=== PATIENT | male | born 1975 | race Caucasian/White ===

== ENCOUNTER → 2017-02-28 | Outpatient (CLI) | payer MEDICARE ==
[~2017-02-28] MED LIST: /METO5TA PO; /ONDA4TA PO; /PANT40TA PO; ABIL2TAB2 PO; ALBU17IN INH; ALPR1TAB3 PO; AMAR1TAB PO; AMBI12.52 PO; AMBIEN PO; AXIR30SO TD; BUPR300T34 PO; CRES5TAB PO; DRIS50002 PO; ENTO3CAP5 PO; FERR325T3 PO; L-ME15TA5 PO; LEVO50TA4 PO; METO25TAB PO; PERC7.5T3 PO; PREV30CA6 PO; SOMA250T PO; SYNT50TA PO; TIZA2CAP3 PO; VERA27.5; VOLT1GEL2 TD; XANA0.25 PO; ZOLO100T PO; ZOLO50TA PO; combination cream TOP
[2017-02-28 20:54] LABS: MEAN CORPUSCULAR VOLUME 79.4 fl (80.0-96.0)
[2017-02-28 20:55] LABS: MEAN CORPUSCULAR HEMOGLOBIN 27.9 pg (27.0-33.0); MEAN CORPUSCULAR HGB CONC 35.1 g/dl (32.0-36.5); RED CELL DISTRIBUTION WIDTH 13.6 % (11.5-14.5)
== END ==
LOC: M SMT 08:14
PROVIDERS: ATTEND Internal Medicine Endocrinology, Diabetes & Metabolism
DX: E29.1 Testicular hypofunction (principal)

== ENCOUNTER → 2017-02-28 | Outpatient (CLI) | payer MEDICARE ==
[2017-02-28 13:37] LABS: MEAN CORPUSCULAR HEMOGLOBIN 27.9 pg (27.0-33.0); MEAN CORPUSCULAR HGB CONC 35.1 g/dl (32.0-36.5); MEAN CORPUSCULAR VOLUME 79.4 fl (80.0-96.0); RED CELL DISTRIBUTION WIDTH 13.6 % (11.5-14.5)
[2017-02-28 13:56] LABS: THYROID PEROXIDASE ANTIBODY 32.5 U/ML (<60.0)
== END ==
LOC: M SMT 08:10
PROVIDERS: ATTEND Family Medicine
DX: R53.83 Other fatigue (principal); M79.622 Pain in left upper arm; D86.9 Sarcoidosis, unspecified; K90.0 Celiac disease; E55.9 Vitamin D deficiency, unspecified; E29.1 Testicular hypofunction; Z79.899 Other long term (current) drug therapy
CPT/HCPCS: 36415; 82306; 82607; 83036; 84403; 85027; 85652; 86140; 86376; G0103

== ENCOUNTER → 2017-04-03 | Outpatient (CLI) | payer MEDICARE ==
[2017-04-03 12:04] LABS: INR 1.03
== END ==
LOC: M SMT 08:48
PROVIDERS: ATTEND Physical Medicine & Rehabilitation
DX: Z01.812 Encounter for preprocedural laboratory examination (principal); D69.1 Qualitative platelet defects

== ENCOUNTER → 2017-04-12 | Outpatient (CLI) | payer MEDICARE ==
[2017-04-12 14:00] LABS: MEAN CORPUSCULAR HEMOGLOBIN 27.5 pg (27.0-33.0); MEAN CORPUSCULAR HGB CONC 34.5 g/dl (32.0-36.5); MEAN CORPUSCULAR VOLUME 79.9 fl (80.0-96.0); RED CELL DISTRIBUTION WIDTH 13.6 % (11.5-14.5); WHITE BLOOD COUNT 5.7 K/mm3 (4.0-10.0)
[2017-04-12 14:17] LABS: VITAMIN B12 LEVEL 573 PG/ML (247-911)
[2017-04-12 14:27] LABS: ALBUMIN 4.5 GM/DL (3.2-5.2); ALBUMIN/GLOBULIN RATIO 1.32 (1.00-1.93); ALKALINE PHOSPHATASE 89 U/L (45-117); ALT/SGPT 88 U/L (12-78); ANION GAP 8 MEQ/L (8-16); AST/SGOT 55 U/L (15-37); BILIRUBIN,TOTAL 0.5 MG/DL (0.2-1.0); BLOOD UREA NITROGEN 11 MG/DL (7-18); CALCIUM LEVEL 9.5 MG/DL (8.5-10.1); CARBON DIOXIDE LEVEL 30 MEQ/L (21-32); CHLORIDE LEVEL 99 MEQ/L (98-107); CREATININE FOR GFR 1.04 MG/DL (0.70-1.30); FERRITIN 341 NG/ML (26-388); GLOMERULAR FILTRATION RATE > 60.0 (>60); GLUCOSE, FASTING 267 MG/DL (70-105); MAGNESIUM LEVEL 2.1 MG/DL (1.8-2.4); PERCENT SATURATION 14.4 % (19.7-37.4); POTASSIUM SERUM 4.1 MEQ/L (3.5-5.1); SODIUM LEVEL 137 MEQ/L (136-145); TOTAL IRON BINDING CAPACITY 479 UG/DL (250-450); TOTAL PROTEIN 7.9 GM/DL (6.4-8.2)
[2017-04-16 10:09] LABS: VITAMIN K1 0.75 ng/mL (0.13-1.88)
== END ==
LOC: M SMT 08:29
PROVIDERS: ATTEND Internal Medicine Gastroenterology
DX: K90.0 Celiac disease (principal); E73.9 Lactose intolerance, unspecified; K44.9 Diaphragmatic hernia without obstruction or gangrene; R19.7 Diarrhea, unspecified; K57.30 Diverticulosis of large intestine without perforation or abscess without bleeding; M79.629 Pain in unspecified upper arm

== ENCOUNTER 2017-06-16 07:00 | Emergency (ER) | payer MEDICARE ==
[~2017-06-16] VITALS: Ht 180.3 cm; Wt 90.9 kg
[~2017-06-16 07:00] MED LIST changes: +ABIL1TAB13 PO; -ABIL2TAB2 PO; +PERC7.5T11 PO; -PERC7.5T3 PO
[2017-06-16] MEDS ORDERED: ONDANSETRON 4MG/2ML VIAL (J2405) IV ONE (07:45)
[2017-06-16] MEDS ORDERED: MORPHINE 4 MG/ML 1ML SYRINGE IV ONE ×2 (07:45→08:15)
[2017-06-16 08:08] LABS: BASO % 0.5 % (0.0-1.0); EOS # 0.1 K/mm3 (0.0-0.50); EOS % 1.4 % (0.0-3.0); LARGE UNSTAINED CELL # 0.1 K/mm3 (0.0-0.4); LARGE UNSTAINED CELL % 1.3 % (0.0-4.0); LYMPH # 1.7 K/mm3 (1.5-4.5); LYMPH % 24.2 % (24.0-44.0); MEAN CORPUSCULAR HEMOGLOBIN 27.6 pg (27.0-33.0); MEAN CORPUSCULAR HGB CONC 34.8 g/dl (32.0-36.5); MEAN CORPUSCULAR VOLUME 79.3 fl (80.0-96.0); MONO # 0.3 K/mm3 (0.0-0.8); MONO % 3.9 % (0.0-5.0); NEUTROPHILS # 4.8 K/mm3 (1.8-7.7); NEUTROPHILS % 68.7 % (36.0-66.0); PLATELET COUNT, AUTOMATED 143 k/mm3 (150-450); RED CELL DISTRIBUTION WIDTH 13.2 % (11.5-14.5)
[2017-06-16 08:12] LABS: ANION GAP 12 MEQ/L (8-16); BLOOD UREA NITROGEN 9 MG/DL (7-18); CALCIUM LEVEL 9.7 MG/DL (8.5-10.1); CARBON DIOXIDE LEVEL 28 MEQ/L (21-32); CHLORIDE LEVEL 97 MEQ/L (98-107); CREATININE FOR GFR 1.03 MG/DL (0.70-1.30); GLOMERULAR FILTRATION RATE > 60.0 (>60); GLUCOSE, FASTING 292 MG/DL (70-105); POTASSIUM SERUM 3.8 MEQ/L (3.5-5.1); SODIUM LEVEL 137 MEQ/L (136-145)
[2017-06-16] MEDS ORDERED: KETOROLAC 30 MG/ML VIAL (J1885) IV ONE (08:15)
[2017-06-16] MEDS ORDERED: NS 1,000 ML IV ONE (08:15)
--- NOTE | 2017-06-16 08:21 | REP ---
CT Head without contrast HISTORY: Headache COMPARISON: 02/05/2013 There is no intraparenchymal hemorrhage, acute infarct, mass or midline shift. The ventricular system is normal in appearance. There is no extra cerebral collection. There is no fracture. The visualized sinuses are clear. IMPRESSION: There is no intracranial lesion. Signed by Panchito Gallo MD 06/16/2017 08:12 A
[2017-06-16] MEDS ORDERED: NORCOTAB PO (09:40)
[2017-06-16] MEDS ORDERED: ONDA4TAB6 PO (09:40)
[2017-06-16] MEDS ORDERED: IBUP-1114 PO (09:40)
[2017-06-16 09:57] VITALS: BP 151/102
== END 2017-06-16 10:00 | disposition home or self-care (01) ==
LOC: M ED 07:00
DX: G43.909 Migraine, unspecified, not intractable, without status migrainosus (principal); E11.9 Type 2 diabetes mellitus without complications; M54.9 Dorsalgia, unspecified; F32.9 Major depressive disorder, single episode, unspecified; F41.9 Anxiety disorder, unspecified; Z79.899 Other long term (current) drug therapy; Z88.1 Allergy status to other antibiotic agents; Z88.0 Allergy status to penicillin; Z88.8 Allergy status to other drugs, medicaments and biological substances; Z91.018 Allergy to other foods
CPT/HCPCS: 70450; 80048; 85025; 96361; 96374; 96375; 99283; J1885; J2405

== ENCOUNTER 2017-07-12 17:18 | Emergency (ER) | payer MEDICARE ==
[~2017-07-12] VITALS: Ht 180.3 cm; Wt 91.8 kg
[~2017-07-12 17:18] MED LIST changes: +IBUP-1114 PO; +NORCOTAB PO; +ONDA4TAB6 PO
[2017-07-12] MEDS ORDERED: ONDANSETRON 4MG/2ML VIAL (J2405) IV ONE (20:45)
[2017-07-12] MEDS ORDERED: MORPHINE 2 MG/ML 1ML SYRINGE IV ONE (20:45)
[2017-07-12] MEDS ORDERED: KETOROLAC 30 MG/ML VIAL (J1885) IV ONE (20:45)
[2017-07-12] MEDS ORDERED: MAXA5TAB11 PO (20:59)
[2017-07-12] MEDS ORDERED: NAPR500T PO (20:59)
[2017-07-12 21:20] VITALS: BP 145/95
== END 2017-07-12 21:21 | disposition home or self-care (01) ==
LOC: M ED 17:18
DX: G43.909 Migraine, unspecified, not intractable, without status migrainosus (principal); E78.00 Pure hypercholesterolemia, unspecified; J45.909 Unspecified asthma, uncomplicated; D86.9 Sarcoidosis, unspecified; K90.0 Celiac disease; E11.9 Type 2 diabetes mellitus without complications; E03.9 Hypothyroidism, unspecified; M54.9 Dorsalgia, unspecified; F41.9 Anxiety disorder, unspecified; F32.9 Major depressive disorder, single episode, unspecified; Z79.899 Other long term (current) drug therapy; Z88.1 Allergy status to other antibiotic agents; Z88.0 Allergy status to penicillin; Z88.8 Allergy status to other drugs, medicaments and biological substances
CPT/HCPCS: 96374; 96375; 99283; J1885; J2405

== ENCOUNTER → 2017-08-14 | Outpatient (REF) | payer MEDICARE ==
[~2017-08-14] MED LIST changes: +MAXA5TAB11 PO; +NAPR500T PO
[2017-08-14 10:34] LABS: ALBUMIN 4.6 GM/DL (3.2-5.2); ALBUMIN/GLOBULIN RATIO 1.44 (1.00-1.93); ALKALINE PHOSPHATASE 66 U/L (45-117); ALT/SGPT 68 U/L (12-78); ANION GAP 7 MEQ/L (8-16); AST/SGOT 32 U/L (15-37); BILIRUBIN,TOTAL 0.6 MG/DL (0.2-1.0); BLOOD UREA NITROGEN 16 MG/DL (7-18); CALCIUM LEVEL 9.2 MG/DL (8.5-10.1); CARBON DIOXIDE LEVEL 28 MEQ/L (21-32); CHLORIDE LEVEL 100 MEQ/L (98-107); CHOLESTEROL LEVEL 256 MG/DL (<200); GLOMERULAR FILTRATION RATE > 60.0 (>60); GLUCOSE, FASTING 207 MG/DL (70-105); POTASSIUM SERUM 4.3 MEQ/L (3.5-5.1); SODIUM LEVEL 135 MEQ/L (136-145); TOTAL PROTEIN 7.8 GM/DL (6.4-8.2); TRIGLYCERIDES LEVEL 813 MG/DL (<150)
== END ==
LOC: M SFHCPLAZ 10:01
PROVIDERS: ATTEND Nurse Practitioner Family
DX: E11.9 Type 2 diabetes mellitus without complications (principal)

== ENCOUNTER → 2017-09-04 | Outpatient (CLI) | payer MEDICARE | LOC: M SMT 08:16 | PROVIDERS: ATTEND Internal Medicine Endocrinology, Diabetes & Metabolism | DX: E29.1 Testicular hypofunction (principal) | CPT/HCPCS: 36415; 84403; G0103 ==

== ENCOUNTER → 2017-11-12 | Outpatient (CLI) | payer MEDICARE ==
[2017-11-12 13:48] LABS: ALBUMIN/GLOBULIN RATIO 1.67 (1.00-1.93); ALKALINE PHOSPHATASE 52 U/L (45-117); ALT/SGPT 53 U/L (12-78); AST/SGOT 24 U/L (7-37); BILIRUBIN,DIRECT 0.1 MG/DL (0.0-0.2); BILIRUBIN,TOTAL 0.4 MG/DL (0.2-1.0); CHOLESTEROL LEVEL 267 MG/DL (<200); CHOLESTEROL RISK RATIO 7.628 (<5); HDL CHOLESTEROL 35 MG/DL (>40); NON-HDL-C 232 MG/DL; TRIGLYCERIDES LEVEL 547 MG/DL (<150)
[2017-11-12 14:26] LABS: ESTIMATED AVERAGE GLUCOSE 154 MG/DL (60-110)
== END ==
LOC: M SMT 08:43
DX: E11.9 Type 2 diabetes mellitus without complications (principal); E78.2 Mixed hyperlipidemia
CPT/HCPCS: 80076

== ENCOUNTER → 2017-12-18 | Outpatient (CLI) | payer MEDICARE ==
[2017-12-18 08:53] LABS: HEMATOCRIT 45.9 % (42.0-52.0); HEMOGLOBIN 15.8 g/dl (14.0-18.0); MEAN CORPUSCULAR HEMOGLOBIN 26.9 pg (27.0-33.0); MEAN CORPUSCULAR HGB CONC 34.4 g/dl (32.0-36.5); MEAN CORPUSCULAR VOLUME 78.1 fl (80.0-96.0); PLATELET COUNT, AUTOMATED 161 10^3/uL (150-450); RED BLOOD COUNT 5.88 10^6/uL (4.30-6.10); RED CELL DISTRIBUTION WIDTH 13.3 % (11.5-14.5); WHITE BLOOD COUNT 7.5 10^3/uL (4.0-10.0)
[2017-12-18 09:16] LABS: ALBUMIN/GLOBULIN RATIO 1.67 (1.00-1.93); ALKALINE PHOSPHATASE 53 U/L (45-117); ALT/SGPT 73 U/L (12-78); ANION GAP 9 MEQ/L (8-16); AST/SGOT 31 U/L (7-37); BILIRUBIN,TOTAL 0.5 MG/DL (0.2-1.0); BLOOD UREA NITROGEN 12 MG/DL (7-18); C REACTIVE PROTEIN QUANTITATIV < 0.30 MG/DL (0.00-0.30); CALCIUM LEVEL 9.5 MG/DL (8.5-10.1); CARBON DIOXIDE LEVEL 27 MEQ/L (21-32); CHLORIDE LEVEL 102 MEQ/L (98-107); CREATININE FOR GFR 1.01 MG/DL (0.70-1.30); FERRITIN 305 NG/ML (26-388); GLOMERULAR FILTRATION RATE > 60.0 (>60); GLUCOSE, FASTING 127 MG/DL (70-100); IRON (FE) 86 UG/DL (65-175); SODIUM LEVEL 138 MEQ/L (136-145); TOTAL IRON BINDING CAPACITY 477 UG/DL (250-450)
[2017-12-18 09:29] LABS: TOTAL 25(OH) VITAMIN D 17.2 NG/ML (30.0-100.0)
== END ==
LOC: M WUC 08:08
DX: K90.0 Celiac disease (principal); R19.7 Diarrhea, unspecified; R10.84 Generalized abdominal pain; E55.9 Vitamin D deficiency, unspecified
CPT/HCPCS: 83550

== ENCOUNTER → 2018-02-12 | Outpatient (CLI) | payer MEDICARE ==
[2018-02-12 14:14] LABS: HEMATOCRIT 46.5 % (42.0-52.0); HEMOGLOBIN 15.5 g/dl (13.5-17.5); MEAN CORPUSCULAR HEMOGLOBIN 27.2 pg (27.0-33.0); MEAN CORPUSCULAR HGB CONC 33.3 g/dl (32.0-36.5); MEAN CORPUSCULAR VOLUME 81.7 fl (80.0-96.0); PLATELET COUNT, AUTOMATED 143 10^3/uL (150-450); RED BLOOD COUNT 5.69 10^6/uL (4.30-6.10); RED CELL DISTRIBUTION WIDTH 13.7 % (11.5-14.5)
[2018-02-12 14:31] LABS: TESTOSTERONE 383 NG/DL (241-827)
[2018-02-12 15:02] LABS: PROSTATIC SPECIFIC AG MONITOR 0.24 NG/ML (< 4.0)
== END ==
LOC: M SMT 07:57
DX: E29.1 Testicular hypofunction (principal); E11.9 Type 2 diabetes mellitus without complications; E78.2 Mixed hyperlipidemia
CPT/HCPCS: 84403

== ENCOUNTER → 2018-02-12 | Outpatient (CLI) | payer MEDICARE ==
[2018-02-12 17:19] LABS: ESTIMATED AVERAGE GLUCOSE 146 MG/DL (60-110); HEMOGLOBIN A1c 6.7 %
== END ==
LOC: M SMT 07:54
DX: E11.9 Type 2 diabetes mellitus without complications (principal); E78.2 Mixed hyperlipidemia

== ENCOUNTER → 2018-02-18 | Outpatient (REF) | payer MEDICARE | LOC: M SFHCPLAZ 10:52 | DX: E11.9 Type 2 diabetes mellitus without complications (principal); E78.2 Mixed hyperlipidemia; Z53.8 Procedure and treatment not carried out for other reasons ==

== ENCOUNTER → 2018-04-05 | Outpatient (REF) | payer MEDICARE | LOC: M LAB REF 17:59 | DX: D23.4 Other benign neoplasm of skin of scalp and neck (principal); L85.8 Other specified epidermal thickening | CPT/HCPCS: 88300 ==

== ENCOUNTER → 2018-06-09 | Outpatient (CLI) | payer MEDICARE ==
[2018-06-09 17:32] LABS: HEMATOCRIT 46.9 % (42.0-52.0); HEMOGLOBIN 15.6 g/dl (13.5-17.5); MEAN CORPUSCULAR HEMOGLOBIN 27.1 pg (27.0-33.0); MEAN CORPUSCULAR HGB CONC 33.3 g/dl (32.0-36.5); MEAN CORPUSCULAR VOLUME 81.6 fl (80.0-96.0); RED BLOOD COUNT 5.75 10^6/uL (4.30-6.10); RED CELL DISTRIBUTION WIDTH 13.6 % (11.5-14.5); WHITE BLOOD COUNT 6.5 10^3/uL (4.0-10.0)
[2018-06-09 18:01] LABS: ALBUMIN 4.6 GM/DL (3.2-5.2); ALBUMIN/GLOBULIN RATIO 1.35 (1.00-1.93); ALKALINE PHOSPHATASE 60 U/L (45-117); ALT/SGPT 81 U/L (12-78); ANION GAP 13 MEQ/L (8-16); AST/SGOT 48 U/L (7-37); BILIRUBIN,TOTAL 0.4 MG/DL (0.2-1.0); BLOOD UREA NITROGEN 9 MG/DL (7-18); C REACTIVE PROTEIN QUANTITATIV 0.89 MG/DL (0.00-0.30); CALCIUM LEVEL 9.3 MG/DL (8.5-10.1); CARBON DIOXIDE LEVEL 27 MEQ/L (21-32); CHLORIDE LEVEL 101 MEQ/L (98-107); CREATININE FOR GFR 0.98 MG/DL (0.70-1.30); FERRITIN 466 NG/ML (26-388); GLOMERULAR FILTRATION RATE > 60.0 (>60); GLUCOSE, FASTING 145 MG/DL (70-100); IRON (FE) 81 UG/DL (65-175); PERCENT SATURATION 17.9 % (19.7-50.0); POTASSIUM SERUM 3.9 MEQ/L (3.5-5.1); SODIUM LEVEL 141 MEQ/L (136-145); TOTAL IRON BINDING CAPACITY 453 UG/DL (250-450)
[2018-06-09 18:13] LABS: PLATELET COUNT, AUTOMATED 72 10^3/uL (150-450); POSITIVE MORPH POS FLAG
[2018-06-09 18:14] LABS: IMMATURE PLATELET FRACTION % 9.1 % (0.0-10.9)
[2018-06-10 09:55] LABS: TOTAL 25(OH) VITAMIN D 14.8 NG/ML (30.0-100.0)
[2018-06-12 00:07] LABS: DEAMIDATED GLIADIN ABS, IgA 16 units (0-19); DEAMIDATED GLIADIN ABS, IgG 31 units (0-19); ENDOMYSIAL ANTIBODY IgA Negative (Negative); IMMUNOGLOBULIN A 190 mg/dL (90-386); t-TRANSGLUTAMINASE(tTG) IgA <2 U/mL (0-3); t-TRANSGLUTAMINASE(tTG) IgG <2 U/mL (0-5)
== END ==
LOC: M LRY 08:53
DX: K90.0 Celiac disease (principal); K29.80 Duodenitis without bleeding
CPT/HCPCS: 83550

== ENCOUNTER → 2018-08-28 | Outpatient (CLI) | payer MEDICARE ==
[2018-08-28 13:44] LABS: HEMATOCRIT 48.5 % (42.0-52.0)
[2018-08-28 14:12] LABS: TESTOSTERONE 335 NG/DL (241-827)
== END ==
LOC: M SMT 08:06
DX: E29.1 Testicular hypofunction (principal)
CPT/HCPCS: 84403

== ENCOUNTER 2018-09-13 14:37 | Emergency (ER) | payer MEDICARE ==
[2018-09-13] MEDS: diphenhydrAMINE INJ 50MG/ML VIAL (J1200) IV (16:15)
[2018-09-13] MEDS: KETOROLAC 30 MG/ML VIAL (J1885) IV (16:15)
[2018-09-13] MEDS: ONDANSETRON 4MG/2ML VIAL (J2405) IV (16:15)
[2018-09-13] MEDS: NS 1,000 ML IV (16:19)
[2018-09-13 16:26] LABS: BASO % 0.3 % (0.0-1.0); EOS # 0.1 10^3/uL (0.0-0.50); EOS % 1.1 % (0.0-3.0); HEMATOCRIT 46.5 % (42.0-52.0); HEMOGLOBIN 15.6 g/dl (13.5-17.5); IMMATURE GRANULOCYTE % 0.6 % (0-3.0); LYMPH # 1.6 10^3/uL (1.5-4.5); MEAN CORPUSCULAR HEMOGLOBIN 26.7 pg (27.0-33.0); MEAN CORPUSCULAR HGB CONC 33.5 g/dl (32.0-36.5); MEAN CORPUSCULAR VOLUME 79.5 fl (80.0-96.0); MONO # 0.3 10^3/uL (0.0-0.8); MONO % 5.1 % (0.0-5.0); NEUTROPHILS # 4.4 10^3/uL (1.8-7.7); NEUTROPHILS % 67.9 % (36.0-66.0); PLATELET COUNT, AUTOMATED 149 10^3/uL (150-450); RED BLOOD COUNT 5.85 10^6/uL (4.30-6.10); RED CELL DISTRIBUTION WIDTH 13.4 % (11.5-14.5); WHITE BLOOD COUNT 6.4 10^3/uL (4.0-10.0)
[2018-09-13] MEDS: GASTROGRAFIN SOLUTION 30ML PO ×2 (16:33→17:05)
[2018-09-13 16:50] LABS: ALBUMIN 4.3 GM/DL (3.2-5.2); ALBUMIN/GLOBULIN RATIO 1.34 (1.00-1.93); ALKALINE PHOSPHATASE 63 U/L (45-117); ALT/SGPT 56 U/L (12-78); ANION GAP 8 MEQ/L (8-16); AST/SGOT 27 U/L (7-37); BILIRUBIN,TOTAL 0.4 MG/DL (0.2-1.0); BLOOD UREA NITROGEN 8 MG/DL (7-18); C REACTIVE PROTEIN QUANTITATIV 0.43 MG/DL (0.00-0.30); CALCIUM LEVEL 9.2 MG/DL (8.5-10.1); CARBON DIOXIDE LEVEL 27 MEQ/L (21-32); CHLORIDE LEVEL 98 MEQ/L (98-107); CREATININE FOR GFR 1.19 MG/DL (0.70-1.30); GLOMERULAR FILTRATION RATE > 60.0 (>60); GLUCOSE, FASTING 351 MG/DL (70-100); LIPASE 320 U/L (73-393); POTASSIUM SERUM 4.3 MEQ/L (3.5-5.1); SODIUM LEVEL 133 MEQ/L (136-145); TOTAL PROTEIN 7.5 GM/DL (6.4-8.2)
[2018-09-13 17:15] LABS: ERYTHROCYTE SEDIMENTATION RATE 6 mm/hr (0-15)
[2018-09-13 17:21] LABS: BEDSIDE GLUCOSE 290 MG/DL (70-105)
[2018-09-13] MEDS: HumuLIN R (REGULAR) INSULIN (NovoLIN R) **100U/ML** PER UNIT SC (17:28)
[2018-09-13] MEDS: MORPHINE 4 MG/ML 1ML VIAL/SYRINGE (J2270) IV (17:39)
[2018-09-13] MEDS ORDERED: ISOVUE-370 76% 100ML VIAL (Q9967) As Ordered (17:48)
[2018-09-13 18:28] LABS: BEDSIDE GLUCOSE 234 MG/DL (70-105)
== END 2018-09-13 18:54 | disposition home or self-care (01) ==
LOC: M ED 14:37
DX: E11.65 Type 2 diabetes mellitus with hyperglycemia (principal); G43.909 Migraine, unspecified, not intractable, without status migrainosus; R10.9 Unspecified abdominal pain; R11.0 Nausea; K90.0 Celiac disease; J45.909 Unspecified asthma, uncomplicated; D86.9 Sarcoidosis, unspecified; M19.90 Unspecified osteoarthritis, unspecified site; F32.9 Major depressive disorder, single episode, unspecified; Z88.8 Allergy status to other drugs, medicaments and biological substances; Z88.1 Allergy status to other antibiotic agents; Z88.0 Allergy status to penicillin; Z91.018 Allergy to other foods; Z79.899 Other long term (current) drug therapy; Z79.84 Long term (current) use of oral hypoglycemic drugs
CPT/HCPCS: J2270

== ENCOUNTER → 2018-09-19 | Outpatient (REF) | payer MEDICARE | LOC: M LAB REF 17:22 | DX: R31.29 Other microscopic hematuria (principal) | CPT/HCPCS: 88300 ==

== ENCOUNTER → 2018-09-19 | Outpatient (REF) | payer MEDICARE | LOC: M SFHCPLAZ 14:07 | DX: R21 Rash and other nonspecific skin eruption (principal) | CPT/HCPCS: 83516 ==

== ENCOUNTER → 2018-10-10 | Outpatient (REF) | payer MEDICARE ==
[2018-10-10 16:04] LABS: HEMATOCRIT 45.7 % (42.0-52.0); HEMOGLOBIN 15.6 g/dl (13.5-17.5); MEAN CORPUSCULAR HEMOGLOBIN 26.9 pg (27.0-33.0); MEAN CORPUSCULAR HGB CONC 34.1 g/dl (32.0-36.5); MEAN CORPUSCULAR VOLUME 78.9 fl (80.0-96.0); PLATELET COUNT, AUTOMATED 163 10^3/uL (150-450); RED BLOOD COUNT 5.79 10^6/uL (4.30-6.10); RED CELL DISTRIBUTION WIDTH 13.3 % (11.5-14.5)
[2018-10-10 16:06] LABS: ALBUMIN 4.3 GM/DL (3.2-5.2); ALBUMIN/GLOBULIN RATIO 1.26 (1.00-1.93); ALKALINE PHOSPHATASE 60 U/L (45-117); ALT/SGPT 70 U/L (12-78); AST/SGOT 40 U/L (7-37); BILIRUBIN,DIRECT 0.1 MG/DL (0.0-0.2); BILIRUBIN,TOTAL 0.5 MG/DL (0.2-1.0); CHOLESTEROL LEVEL 246 MG/DL (<200); CHOLESTEROL RISK RATIO 8.482 (<5); HDL CHOLESTEROL 29 MG/DL (>40); NON-HDL-C 217 MG/DL; TOTAL PROTEIN 7.7 GM/DL (6.4-8.2); TRIGLYCERIDES LEVEL 753 MG/DL (<150)
== END ==
LOC: M SFHCPLAZ 14:02
DX: L71.9 Rosacea, unspecified (principal)
CPT/HCPCS: 80076

== ENCOUNTER → 2019-02-05 | Outpatient (REF) | payer MEDICARE ==
[~2019-02-05] MED LIST changes: -/METO5TA PO; -/ONDA4TA PO; -/PANT40TA PO; +ARIP1TAB10 PO; +BUDE3CAP15 PO; +D 50CAP PO; -DRIS50002 PO; +DRIS50003 PO; -ENTO3CAP5 PO; +HYDR-3715 PO; +LORA1TAB12; +METF10004 PO; +METO1TAB63 PO; +METO1TAB88 PO; -METO25TAB PO; +NAPR-837 PO; -NAPR500T PO; -NORCOTAB PO; +ONDA-1 PO; +PROT1TAB2 PO; +ROSU40TA3 PO; +TEST200I14; +TIZA2CAP PO; -TIZA2CAP3 PO; +ZOFR8TAB22 PO
[2019-02-05 13:44] LABS: ALBUMIN 5.1 GM/DL (3.2-5.2); ALT/SGPT 45 U/L (12-78); BILIRUBIN,TOTAL 0.5 MG/DL (0.2-1.0); BLOOD UREA NITROGEN 12 MG/DL (7-18); CALCIUM LEVEL 9.3 MG/DL (8.5-10.1); CARBON DIOXIDE LEVEL 29 MEQ/L (21-32); CHLORIDE LEVEL 103 MEQ/L (98-107); CHOLESTEROL LEVEL 99 MG/DL (<200); CREATININE FOR GFR 1.25 MG/DL (0.70-1.30); GLOMERULAR FILTRATION RATE > 60.0 (>60); GLUCOSE, FASTING 179 MG/DL (70-100); HDL CHOLESTEROL 30 MG/DL (>40); LDL CHOLESTEROL 22 MG/DL (<100); NON-HDL-C 69 MG/DL; POTASSIUM SERUM 4.3 MEQ/L (3.5-5.1); SODIUM LEVEL 138 MEQ/L (136-145); TOTAL PROTEIN 7.7 GM/DL (6.4-8.2); TRIGLYCERIDES LEVEL 235 MG/DL (<150)
[2019-02-05 14:36] LABS: CREATININE, URINE 82.7 MG/DL; MALB URINE SIEMENS 7.4 MG/L; MAU/CREAT RATIO 8.9 MCG/MG (0.0-30.0)
== END ==
LOC: M LABSMT 12:42
PROVIDERS: ATTEND Family Medicine
DX: E11.9 Type 2 diabetes mellitus without complications (principal); E03.9 Hypothyroidism, unspecified; E78.2 Mixed hyperlipidemia

== ENCOUNTER → 2019-02-21 | Outpatient (CLI) | payer MEDICARE ==
[2019-02-21 13:12] LABS: HEMATOCRIT 46.1 % (42.0-52.0); HEMOGLOBIN 15.1 g/dl (13.5-17.5)
== END ==
LOC: M SMT 07:54
PROVIDERS: ATTEND Nurse Practitioner Family
DX: E29.1 Testicular hypofunction (principal)
CPT/HCPCS: 36415; 84403; 85014; 85018; G0103

== ENCOUNTER → 2019-02-26 | Outpatient (REF) | payer MEDICARE | LOC: M SFHCPLAZ 11:45 | PROVIDERS: ATTEND Family Medicine | DX: E55.9 Vitamin D deficiency, unspecified (principal); Z53.8 Procedure and treatment not carried out for other reasons ==

== ENCOUNTER → 2019-02-26 | Outpatient (CLI) | payer MEDICARE | LOC: M SMT 11:57 | PROVIDERS: ATTEND Family Medicine | DX: E55.9 Vitamin D deficiency, unspecified (principal) ==

== ENCOUNTER → 2019-06-27 | Outpatient (CLI) | payer MEDICARE ==
[~2019-06-27] MED LIST changes: -ROSU40TA3 PO; +ROSU40TA4 PO
[2019-06-27 13:27] LABS: HEMATOCRIT 49.1 % (42.0-52.0); MEAN CORPUSCULAR HEMOGLOBIN 26.5 pg (27.0-33.0); MEAN CORPUSCULAR HGB CONC 32.6 g/dl (32.0-36.5); MEAN CORPUSCULAR VOLUME 81.3 fl (80.0-96.0); PLATELET COUNT, AUTOMATED 134 10^3/uL (150-450); RED BLOOD COUNT 6.04 10^6/uL (4.30-6.10); WHITE BLOOD COUNT 6.1 10^3/uL (4.0-10.0)
[2019-06-27 13:41] LABS: ALBUMIN 4.8 GM/DL (3.2-5.2); ALT/SGPT 45 U/L (12-78); BILIRUBIN,TOTAL 0.4 MG/DL (0.2-1.0); BLOOD UREA NITROGEN 15 MG/DL (7-18); C REACTIVE PROTEIN QUANTITATIV < 0.30 MG/DL (0.00-0.30); CALCIUM LEVEL 10.1 MG/DL (8.5-10.1); CARBON DIOXIDE LEVEL 28 MEQ/L (21-32); CHLORIDE LEVEL 103 MEQ/L (98-107); FERRITIN 200 NG/ML (26-388); GLOMERULAR FILTRATION RATE > 60.0 (>60); GLUCOSE, FASTING 173 MG/DL (70-100); IRON (FE) 69 UG/DL (65-175); MAGNESIUM LEVEL 2.3 MG/DL (1.8-2.4); PERCENT SATURATION 12.1 % (19.7-50.0); POTASSIUM SERUM 4.2 MEQ/L (3.5-5.1); SODIUM LEVEL 138 MEQ/L (136-145); TOTAL IRON BINDING CAPACITY 568 UG/DL (250-450); TOTAL PROTEIN 7.6 GM/DL (6.4-8.2)
[2019-06-27 13:42] LABS: TOTAL 25(OH) VITAMIN D 35.8 NG/ML (30.0-100.0); VITAMIN B12 LEVEL 545 PG/ML (247-911)
== END ==
LOC: M SMT 08:27
PROVIDERS: ATTEND Internal Medicine Gastroenterology
DX: K90.0 Celiac disease (principal); R10.32 Left lower quadrant pain; D50.9 Iron deficiency anemia, unspecified; K44.9 Diaphragmatic hernia without obstruction or gangrene; K29.70 Gastritis, unspecified, without bleeding; R53.83 Other fatigue; R19.4 Change in bowel habit; R25.2 Cramp and spasm

== ENCOUNTER → 2019-06-27 | Outpatient (CLI) | payer MEDICARE ==
[2019-06-27 14:22] LABS: HEMOGLOBIN A1c 7.9 %
== END ==
LOC: M SMT 08:25
PROVIDERS: ATTEND Family Medicine
DX: E11.9 Type 2 diabetes mellitus without complications (principal)

== ENCOUNTER → 2019-08-22 | Outpatient (CLI) | payer MEDICARE ==
[2019-08-22 10:13] LABS: HEMATOCRIT 51.9 % (42.0-52.0)
== END ==
LOC: M SMT 08:07
PROVIDERS: ATTEND Nurse Practitioner Family
DX: E29.1 Testicular hypofunction (principal)

== ENCOUNTER → 2019-09-22 | Outpatient (REF) | payer MEDICARE | LOC: M LAB REF 18:49 | PROVIDERS: ATTEND Dermatology | DX: L57.0 Actinic keratosis (principal) ==

== ENCOUNTER → 2019-10-01 | Outpatient (REF) | payer MEDICARE ==
[2019-10-01 12:05] LABS: HEMATOCRIT 52.4 % (42.0-52.0); HEMOGLOBIN 17.2 g/dl (13.5-17.5); MEAN CORPUSCULAR HEMOGLOBIN 27.1 pg (27.0-33.0); MEAN CORPUSCULAR HGB CONC 32.8 g/dl (32.0-36.5); MEAN CORPUSCULAR VOLUME 82.5 fl (80.0-96.0); PLATELET COUNT, AUTOMATED 175 10^3/uL (150-450); RED BLOOD COUNT 6.35 10^6/uL (4.30-6.10); WHITE BLOOD COUNT 7.7 10^3/uL (4.0-10.0)
[2019-10-01 12:38] LABS: HEMOGLOBIN A1c 7.7 %
[2019-10-01 12:55] LABS: MALB URINE SIEMENS 39.3 MG/L; MAU/CREAT RATIO 38.1 MCG/MG (0.0-30.0)
[2019-10-01 13:07] LABS: ALT/SGPT 47 U/L (12-78); BILIRUBIN,TOTAL 0.4 MG/DL (0.2-1.0); BLOOD UREA NITROGEN 17 MG/DL (7-18); CALCIUM LEVEL 9.8 MG/DL (8.5-10.1); CARBON DIOXIDE LEVEL 24 MEQ/L (21-32); CHLORIDE LEVEL 103 MEQ/L (98-107); CHOLESTEROL LEVEL 167 MG/DL (<200); CREATININE FOR GFR 1.38 MG/DL (0.70-1.30); FERRITIN 223 NG/ML (26-388); GLOMERULAR FILTRATION RATE 59.1 (>60); GLUCOSE, FASTING 170 MG/DL (70-100); HDL CHOLESTEROL 33 MG/DL (>40); IRON (FE) 82 UG/DL (65-175); NON-HDL-C 134 MG/DL; PTH INTACT 34.8 PG/ML (18.5-88.0); SODIUM LEVEL 140 MEQ/L (136-145); TOTAL 25(OH) VITAMIN D 43.4 NG/ML (30.0-100.0); TOTAL PROTEIN 8.3 GM/DL (6.4-8.2); TRIGLYCERIDES LEVEL 562 MG/DL (<150)
== END ==
LOC: M LABDRAW1 10:08
PROVIDERS: ATTEND Family Medicine
DX: E61.1 Iron deficiency (principal); E55.9 Vitamin D deficiency, unspecified; E11.9 Type 2 diabetes mellitus without complications; E78.2 Mixed hyperlipidemia; E03.9 Hypothyroidism, unspecified; Z79.899 Other long term (current) drug therapy

== ENCOUNTER → 2020-02-09 | Outpatient (REF) | payer MEDICARE ==
[~2020-02-09] MED LIST changes: -BUPR300T34 PO; +BUPR300T92 PO; -LORA1TAB12; +LORA1TAB4
[2020-02-09 11:05] LABS: BLOOD UREA NITROGEN 12 MG/DL (7-18); CALCIUM LEVEL 9.7 MG/DL (8.5-10.1); CARBON DIOXIDE LEVEL 24 MEQ/L (21-32); CHLORIDE LEVEL 100 MEQ/L (98-107); CREATININE FOR GFR 1.04 MG/DL (0.70-1.30); GLOMERULAR FILTRATION RATE > 60.0 (>60); GLUCOSE, FASTING 138 MG/DL (70-100); SODIUM LEVEL 134 MEQ/L (136-145)
[2020-02-09 11:41] LABS: CREATININE, URINE 28.8 MG/DL; MALB URINE SIEMENS < 5.0 MG/L; MAU/CREAT RATIO 17.3 MCG/MG (0.0-30.0)
[2020-02-09 11:44] LABS: HEMOGLOBIN A1c 7.3 %
== END ==
LOC: M PLALAB 08:13
PROVIDERS: ATTEND Family Medicine
DX: E11.29 Type 2 diabetes mellitus with other diabetic kidney complication (principal); R80.9 Proteinuria, unspecified

== ENCOUNTER → 2020-02-23 | Outpatient (CLI) | payer MEDICARE ==
[2020-02-23 10:00] LABS: HEMATOCRIT 47.5 % (42.0-52.0); HEMOGLOBIN 15.5 g/dl (13.5-17.5); MEAN CORPUSCULAR HEMOGLOBIN 27.1 pg (27.0-33.0); MEAN CORPUSCULAR HGB CONC 32.6 g/dl (32.0-36.5); MEAN CORPUSCULAR VOLUME 83.2 fl (80.0-96.0); PLATELET COUNT, AUTOMATED 155 10^3/uL (150-450); RED BLOOD COUNT 5.71 10^6/uL (4.30-6.10); WHITE BLOOD COUNT 6.4 10^3/uL (4.0-10.0)
[2020-02-23 10:07] LABS: PROSTATIC SPECIFIC AG MONITOR 0.28 NG/ML (< 4.00)
== END ==
LOC: M PLALAB 08:09
PROVIDERS: ATTEND Internal Medicine Endocrinology, Diabetes & Metabolism
DX: E29.1 Testicular hypofunction (principal)

== ENCOUNTER 2020-03-09 17:26 | Emergency (ER) | payer MEDICARE ==
[~2020-03-09] VITALS: Ht 180.3 cm; Wt 87.6 kg
[2020-03-09] MEDS ORDERED: TRUL10IN (17:34)
[2020-03-09] MEDS ORDERED: JARD1TAB3 (17:34)
[2020-03-09] MEDS ORDERED: LISI10TA4 (17:34)
[2020-03-09] MEDS ORDERED: NS 1,000 ML IV ONE (18:00)
[2020-03-09] MEDS ORDERED: KETOROLAC 30 MG/ML 1ML VIAL IV ONE (18:00)
[2020-03-09] MEDS ORDERED: ONDANSETRON 4MG/2ML VIAL IV ONE (18:00)
[2020-03-09 18:18] LABS: BASO % 0.3 % (0.0-1.0); EOS # 0.3 10^3/uL (0.0-0.5); EOS % 4.8 % (0.0-3.0); HEMATOCRIT 46.2 % (42.0-52.0); LYMPH # 1.6 10^3/uL (1.5-5.0); LYMPH % 23.3 % (24.0-44.0); MEAN CORPUSCULAR HEMOGLOBIN 27.2 pg (27.0-33.0); MEAN CORPUSCULAR HGB CONC 32.5 g/dl (32.0-36.5); MEAN CORPUSCULAR VOLUME 83.8 fl (80.0-96.0); MONO # 0.3 10^3/uL (0.0-0.8); MONO % 4.6 % (0.0-5.0); NEUTROPHILS # 4.5 10^3/uL (1.5-8.5); NEUTROPHILS % 66.7 % (36.0-66.0); PLATELET COUNT, AUTOMATED 153 10^3/uL (150-450); RED BLOOD COUNT 5.51 10^6/uL (4.30-6.10); WHITE BLOOD COUNT 6.7 10^3/uL (4.0-10.0)
[2020-03-09 18:51] LABS: ALBUMIN 4.3 GM/DL (3.2-5.2); ALT/SGPT 29 U/L (12-78); BILIRUBIN,DIRECT 0.1 MG/DL (0.0-0.2); BILIRUBIN,TOTAL 0.3 MG/DL (0.2-1.0); BLOOD UREA NITROGEN 8 MG/DL (7-18); CARBON DIOXIDE LEVEL 27 MEQ/L (21-32); CHLORIDE LEVEL 103 MEQ/L (98-107); CREATININE FOR GFR 1.13 MG/DL (0.70-1.30); GLOMERULAR FILTRATION RATE > 60.0 (>60); GLUCOSE, FASTING 110 MG/DL (70-100); LIPASE 150 U/L (73-393); POTASSIUM SERUM 3.9 MEQ/L (3.5-5.1); SODIUM LEVEL 139 MEQ/L (136-145); TOTAL PROTEIN 7.4 GM/DL (6.4-8.2)
[2020-03-09] MEDS ORDERED: DICYCLOMINE 10 MG CAP PO ONE (19:00)
[2020-03-09] MEDS ORDERED: GI COCKTAIL 50ML BTL(HYOSCYAMINE/MAALOX/LIDOCAINE VISCOUS)(1:3:1) PO ONE (19:00)
[2020-03-09] MEDS ORDERED: ISOVUE-370 76% 100ML VIAL As Ordered ONE (19:30)
--- NOTE | 2020-03-09 19:52 | REPVR ---
PROCEDURE INFORMATION: Exam: CT Abdomen And Pelvis With Contrast Exam date and time: 03/09/2020 7:36 PM Age: 44 years old Clinical indication: Abdominal pain; Additional info: Generalized sharp abd pain, nonresolving, HX celiac TECHNIQUE: Imaging protocol: Computed tomography of the abdomen and pelvis with intravenous contrast. Radiation optimization: All CT scans at this facility use at least one of these dose optimization techniques: automated exposure control; mA and/or kV adjustment per patient size (includes targeted exams where dose is matched to clinical indication); or iterative reconstruction. Contrast material: ISO 370; Contrast volume: 100 ml; Contrast route: IV; COMPARISON: CT ABD/PEL W/IV ORAL CONTRAS 09/13/2018 5:44 PM FINDINGS: Liver: Normal. No mass. Gallbladder and bile ducts: Normal. No calcified stones. No ductal dilation. Pancreas: Normal. No ductal dilation. Spleen: Spleen is enlarged and measures 16 cm. Adrenals: Normal. No mass. Kidneys and ureters: Normal. No hydronephrosis. Stomach and bowel: Unremarkable. No obstruction. No mucosal thickening. Appendix: No evidence of appendicitis. Intraperitoneal space: Unremarkable. No free air. No significant fluid collection. Vasculature: Unremarkable. No abdominal aortic aneurysm. Lymph nodes: Unremarkable. No enlarged lymph nodes. Bladder: Unremarkable as visualized. Reproductive: Unremarkable as visualized. Bones/joints: Unremarkable. No acute fracture. Soft tissues: Unremarkable. IMPRESSION: No acute abdominal or pelvic abnormality. Enlarged spleen. Electronically signed by: Frederic Panchal On 03/09/2020 19:51:36 PM
[2020-03-09] MEDS ORDERED: ONDA4TAB6 PO (20:35)
[2020-03-09] MEDS ORDERED: DICY10CA13 PO (20:35)
[2020-03-09 20:38] VITALS: BP 128/69
--- NOTE | 2020-03-09 23:15 | REP ---
ACUTE ABDOMINAL SERIES, THREE VIEWS: HISTORY: Abdomen pain. COMPARISON CHEST X-RAY: 09/18/2014 FINDINGS: Upright chest radiograph is normal. Pleural angles are sharp. There is no evidence of infiltrate or free subdiaphragmatic air. Heart is not enlarged. Supine and erect views of the abdomen demonstrate an unremarkable bowel gas pattern. No large or small bowel dilation is seen. No significant air-fluid level is seen. Psoas margins and flank stripes are intact. No mass, organomegaly, or pathologic calcification is seen. IMPRESSION: Negative abdominal series. Electronically Signed by Max Almaguer MD 03/10/2020 07:55 A
--- NOTE | 2020-03-10 12:19 | ED PDOC ---
Post-Departure Follow-Up dr barrera faxed formal report of ct abd/p for fu Hilario Moore MD March 10, 2020 12:19
== END 2020-03-09 20:44 | disposition home or self-care (01) ==
LOC: M ED 17:26
DX: R10.84 Generalized abdominal pain (principal); R11.2 Nausea with vomiting, unspecified; R16.1 Splenomegaly, not elsewhere classified; E11.9 Type 2 diabetes mellitus without complications; E78.5 Hyperlipidemia, unspecified; J45.909 Unspecified asthma, uncomplicated; E07.9 Disorder of thyroid, unspecified; Z88.0 Allergy status to penicillin; Z88.1 Allergy status to other antibiotic agents; Z88.8 Allergy status to other drugs, medicaments and biological substances; Z91.018 Allergy to other foods; Z79.899 Other long term (current) drug therapy
CPT/HCPCS: 74021; 74177; 80048; 80076; 81001; 83690; 85025; 96361; 96374; 96375; 99284; J1885; J2405; Q9967

== ENCOUNTER 2020-03-26 12:14 | Emergency (ER) | payer MEDICARE ==
[~2020-03-26] VITALS: Ht 180.3 cm; Wt 88.6 kg
[~2020-03-26 12:14] MED LIST changes: +DICY10CA13 PO; +JARD1TAB3; +LISI10TA4; +TRUL10IN
[2020-03-26] MEDS ORDERED: METF-839 PO (12:22)
[2020-03-26] MEDS ORDERED: ARIP1TAB2 PO (12:22)
[2020-03-26] MEDS ORDERED: SERT-138 PO (12:22)
[2020-03-26] MEDS ORDERED: ONDANSETRON 4MG/2ML VIAL IV ONE ×2 (12:45→16:45)
[2020-03-26] MEDS ORDERED: NS 1,000 ML IV ONE ×2 (12:45→17:15)
[2020-03-26] MEDS ORDERED: PANTOPRAZOLE 40MG VIAL (C9113 PER 1) IV ONE (12:45)
[2020-03-26 13:10] LABS: BASO # 0.2 10^3/uL (0.0-0.2); BASO % 0.8 % (0.0-1.0); EOS # 0.3 10^3/uL (0.0-0.5); EOS % 1.6 % (0.0-3.0); HEMATOCRIT 58.9 % (42.0-52.0); HEMOGLOBIN 19.1 g/dl (13.5-17.5); LYMPH # 1.6 10^3/uL (1.5-5.0); LYMPH % 7.7 % (24.0-44.0); MEAN CORPUSCULAR HEMOGLOBIN 26.8 pg (27.0-33.0); MEAN CORPUSCULAR HGB CONC 32.4 g/dl (32.0-36.5); MEAN CORPUSCULAR VOLUME 82.5 fl (80.0-96.0); MONO # 1.3 10^3/uL (0.0-0.8); MONO % 6.5 % (0.0-5.0); NEUTROPHILS # 16.9 10^3/uL (1.5-8.5); NEUTROPHILS % 82.8 % (36.0-66.0); PLATELET COUNT, AUTOMATED 293 10^3/uL (150-450); RED BLOOD COUNT 7.14 10^6/uL (4.30-6.10); WHITE BLOOD COUNT 20.4 10^3/uL (4.0-10.0)
[2020-03-26 13:41] LABS: ALBUMIN 5.3 GM/DL (3.2-5.2); ALT/SGPT 51 U/L (12-78); AMYLASE 100 U/L (25-115); BILIRUBIN,DIRECT 0.1 MG/DL (0.0-0.2); BILIRUBIN,TOTAL 0.8 MG/DL (0.2-1.0); BLOOD UREA NITROGEN 13 MG/DL (7-18); CARBON DIOXIDE LEVEL 24 MEQ/L (21-32); CHLORIDE LEVEL 100 MEQ/L (98-107); CREATININE FOR GFR 1.33 MG/DL (0.70-1.30); GLOMERULAR FILTRATION RATE > 60.0 (>60); GLUCOSE, FASTING 172 MG/DL (70-100); LIPASE 123 U/L (73-393); POTASSIUM SERUM 4.1 MEQ/L (3.5-5.1); SODIUM LEVEL 136 MEQ/L (136-145); TOTAL PROTEIN 8.8 GM/DL (6.4-8.2)
[2020-03-26] MEDS ORDERED: KETOROLAC 30 MG/ML 1ML VIAL IV ONE (14:45)
--- NOTE | 2020-03-26 15:59 | REP ---
ABDOMINAL SERIES: Supine and erect views of the abdomen demonstrate no evidence of free intraperitoneal air and no evidence of small bowel obstruction. No dilated small bowel loops are seen. No abnormal calcifications are seen. An accompanying view of the chest demonstrates no acute infiltrate. Heart and mediastinum are within normal limits. IMPRESSION: Negative abdominal series. Electronically Signed by Checo Delgado MD 03/29/2020 10:02 P
[2020-03-26 17:46] LABS: AMPHETAMINES LEVEL URINE NEGATIVE (NEGATIVE); BARBITURATES URINE NEGATIVE (NEGATIVE); BENZODIAZEPINES URINE POSITIVE (NEGATIVE); CANNABINOIDS URINE NEGATIVE (NEGATIVE); COCAINE METABOLITE URINE NEGATIVE (NEGATIVE); METHADONE URINE NEGATIVE (NEGATIVE); OPIATES URINE NEGATIVE (NEGATIVE); PHENCYCLIDINE URINE NEGATIVE (NEGATIVE)
[2020-03-26 20:00] LABS: BASO % 0.5 % (0.0-1.0); EOS # 0.3 10^3/uL (0.0-0.5); EOS % 3.4 % (0.0-3.0); LYMPH % 11.3 % (24.0-44.0); MEAN CORPUSCULAR HEMOGLOBIN 27.4 pg (27.0-33.0); MEAN CORPUSCULAR HGB CONC 33.3 g/dl (32.0-36.5); MEAN CORPUSCULAR VOLUME 82.4 fl (80.0-96.0); MONO # 0.4 10^3/uL (0.0-0.8); NEUTROPHILS % 79.5 % (36.0-66.0); RED BLOOD COUNT 5.58 10^6/uL (4.30-6.10); WHITE BLOOD COUNT 8.8 10^3/uL (4.0-10.0)
[2020-03-26 20:03] LABS: HEMOGLOBIN 15.3 g/dl (13.5-17.5); PLATELET COUNT, AUTOMATED 137 10^3/uL (150-450)
[2020-03-26] MEDS ORDERED: ONDA4TAB6 PO (20:14)
[2020-03-26 20:23] VITALS: BP 133/74
--- NOTE | 2020-03-27 07:50 | REP ---
CT ABDOMEN AND PELVIS WITHOUT CONTRAST: CT abdomen and pelvis performed without oral or IV contrast. Sagittal and coronal reconstruction images are performed. Comparison is made with a prior study of 03/09/2020. The liver is mildly enlarged measuring about 19 cm in length. The spleen is mildly enlarged measuring about 15.7 cm in length. The adrenal glands are normal. Pancreas is grossly unremarkable. There is no renal or ureteral calculus and no hydroureteronephrosis. There is mo abdominal aortic aneurysm. There is no adenopathy. There is no free air or free fluid. There is no bowel wall thickening. There is no bowel obstruction. The appendix is normal. No pelvic mass is seen. Urinary bladder is grossly unremarkable. IMPRESSION: Mild hepatosplenomegaly. No acute findings in the abdomen or pelvis. Electronically Signed by Checo Delgado MD 03/29/2020 10:10 P
--- NOTE | 2020-03-30 15:07 | ED PDOC ---
Post-Departure Follow-Up dr barrera faxed formal report of ct abd/p for fu Hilario Moore MD Mar 30, 2020 15:07
== END 2020-03-26 20:27 | disposition home or self-care (01) ==
LOC: M ED 12:14
DX: R10.84 Generalized abdominal pain (principal); R11.2 Nausea with vomiting, unspecified; R16.2 Hepatomegaly with splenomegaly, not elsewhere classified; F17.200 Nicotine dependence, unspecified, uncomplicated; Z79.84 Long term (current) use of oral hypoglycemic drugs; Z79.899 Other long term (current) drug therapy; Z88.0 Allergy status to penicillin; Z88.1 Allergy status to other antibiotic agents; Z88.8 Allergy status to other drugs, medicaments and biological substances; Z91.018 Allergy to other foods
CPT/HCPCS: 74021; 74176; 80047; 80048; 80076; 80307; 81001; 82150; 83605; 83690; 85025; 87040; 96361; 96374; 96375; 99284; C9113; J1885; J2405

== ENCOUNTER → 2020-05-04 | Outpatient (CLI) | payer MEDICARE ==
[~2020-05-04] MED LIST changes: +ACET325C5 PO; +ARIP1TAB2 PO; +BUDE10.22 INH; +HYDR-3363 PO; +METF-839 PO; +REXU1TAB3 PO; +ROBA750T4 PO; +SERT-138 PO; +SOMA350T PO; +TEST200I14 SQ
--- NOTE | 2020-05-04 12:52 | REP ---
NUCLEAR GASTRIC EMPTYING SCAN: Following the oral administration of 1.05 millicuries technetium 99m sulfur colloid in two scrambled eggs and 6 ounces of water, multiple images of the upper abdomen performed in the anterior and posterior projections for 90 minutes. At the end of 90 minutes, 59% of the ingested activity has emptied from the stomach. T-1/2 is calculated at 85 minutes, which is within normal limits. IMPRESSION: Normal gastric emptying. Electronically Signed by Checo Delgado MD 05/05/2020 04:44 P
== END ==
LOC: M RAD 08:14
PROVIDERS: ATTEND Internal Medicine Gastroenterology
DX: R11.2 Nausea with vomiting, unspecified (principal); R10.12 Left upper quadrant pain; T18.2XXA Foreign body in stomach, initial encounter
CPT/HCPCS: 78264; A9541

== ENCOUNTER → 2020-06-04 | Outpatient (CLI) | payer MEDICARE ==
--- NOTE | 2020-07-14 10:37 | REP ---
ATTEMPTED ULTRASOUND OF MESENTERIC ARTERIES: HISTORY: Abdominal pain. FINDINGS: Real time ultrasound evaluation and duplex Doppler interrogation of the mesenteric artery is attempted. Overlying bowel gas obscures the celiac axis, the superior and inferior mesenteric arteries. These arteries therefore cannot be evaluated. The abdominal aorta is visualized and is normal in caliber with a peak systolic velocity of 73.7 cm/s. Please note that on the CT of 03/09/20, the celiac axis and superior mesenteric arteries appear to be patent without significant stenosis. The inferior mesenteric artery also appears to be patent. MTDD
== END ==
LOC: M RAD 08:00
PROVIDERS: ATTEND Nurse Practitioner Family
DX: R10.84 Generalized abdominal pain (principal); R11.2 Nausea with vomiting, unspecified; K90.0 Celiac disease

== ENCOUNTER → 2020-06-08 | Outpatient (CLI) | payer MEDICARE ==
[~2020-06-08] MED LIST changes: +E-Z-PAQUE 96% w/w SUSP 176GM BTL As Ordered ONE
--- NOTE | 2020-07-14 10:39 | REP ---
SMALL BOWEL FOLLOW-THROUGH The procedure was performed under the direct supervision of Dr. Almaguer. The images were reviewed with Dr. Almaguer. The retail operations manager film shows no organomegaly or pathological masses. The intestinal gas pattern is nonspecific. Liquid barium was administered and the barium column was followed through the small bowel to the level of the terminal ileum. Small bowel transit time was approximately 90 minutes. During fluoroscopy gentle palpation shows all loops are freely movable and pliable. There are no fixed or angulated loops. The small bowel mucosal pattern is normal in course and caliber. There is no transition to suggest a partial small bowel obstruction. Spot filming of the terminal ileum shows it to be unremarkable. IMPRESSION: Small bowel follow-through examination within normal limits. One minute of fluoroscopy time was utilized for this procedure. GHADA
== END ==
LOC: M RAD 07:40
PROVIDERS: ATTEND Internal Medicine Gastroenterology
DX: R10.84 Generalized abdominal pain (principal); R11.2 Nausea with vomiting, unspecified; R12 Heartburn; K90.0 Celiac disease

== ENCOUNTER 2020-06-29 10:55 | Emergency (ER) | payer MEDICARE ==
[~2020-06-29] VITALS: Ht 180.3 cm; Wt 89.0 kg
[~2020-06-29 10:55] MED LIST changes: -ACET325C5 PO; -BUDE10.22 INH; -E-Z-PAQUE 96% w/w SUSP 176GM BTL As Ordered ONE; -HYDR-3363 PO; -REXU1TAB3 PO; -ROBA750T4 PO; -SOMA350T PO; -TEST200I14 SQ
[2020-06-29] MEDS ORDERED: ACET325C5 PO (11:35)
[2020-06-29] MEDS ORDERED: KETOROLAC 30 MG/ML 1ML VIAL IV ONE (12:00)
[2020-06-29] MEDS ORDERED: NS 1,000 ML IV ONE (12:00)
[2020-06-29] MEDS ORDERED: ONDANSETRON 4MG/2ML VIAL IV ONE (12:00)
[2020-06-29] MEDS ORDERED: dexameTHASONE 4 MG/ML 1ML VIAL (J1100 PER 1MG) IV ONE (12:00)
[2020-06-29] MEDS ORDERED: ONDANSETRON 4MG/2ML VIAL As Ordered ONE (12:04)
[2020-06-29] MEDS ORDERED: dexameTHASONE 4 MG/ML 1ML VIAL (J1100 PER 1MG) As Ordered ONE (12:05)
[2020-06-29] MEDS ORDERED: KETOROLAC 30 MG/ML 1ML VIAL As Ordered ONE (12:05)
[2020-06-29] MEDS ORDERED: SUMAtriptan SUCCINATE 6 MG/0.5 ML VIAL SC ONE (13:00)
[2020-06-29] MEDS ORDERED: SUMAtriptan SUCCINATE 6 MG/0.5 ML VIAL As Ordered ONE (13:03)
--- NOTE | 2020-06-29 13:42 | REPVR ---
PROCEDURE INFORMATION: Exam: CT Head Without Contrast Exam date and time: 06/29/2020 1:30 PM Age: 45 years old Clinical indication: Pain; Headache; Additional info: Headache with no relief TECHNIQUE: Imaging protocol: Computed tomography of the head without contrast. Radiation optimization: All CT scans at this facility use at least one of these dose optimization techniques: automated exposure control; mA and/or kV adjustment per patient size (includes targeted exams where dose is matched to clinical indication); or iterative reconstruction. COMPARISON: CT Head without contrast 06/16/2017 7:43 AM FINDINGS: Brain: Normal. No hemorrhage. Unremarkable white matter. No mass effect. Ventricles: Normal. No ventriculomegaly. Bones/joints: Unremarkable. No acute fracture. Sinuses: Visualized sinuses are unremarkable. No fluid levels. Mastoid air cells: Visualized mastoid air cells are well aerated. Soft tissues: Unremarkable. IMPRESSION: No acute intracranial abnormality. Electronically signed by: Sandy Barfield On 06/29/2020 13:41:39 PM
[2020-06-29] MEDS ORDERED: MORPHINE 2 MG/ML 1ML VIAL (J2270) IV ONE (14:00)
[2020-06-29 14:34] VITALS: BP 147/88
== END 2020-06-29 14:55 | disposition home or self-care (01) ==
LOC: M ED 10:55
DX: R51 Headache (principal); E11.9 Type 2 diabetes mellitus without complications; D86.9 Sarcoidosis, unspecified; Z88.0 Allergy status to penicillin; Z88.8 Allergy status to other drugs, medicaments and biological substances; Z88.1 Allergy status to other antibiotic agents; Z79.899 Other long term (current) drug therapy
CPT/HCPCS: 70450; 96361; 96372; 96374; 96375; 99284; J1100; J1885; J2270; J2405

== ENCOUNTER → 2020-07-22 | Outpatient (CLI) | payer MEDICARE ==
[~2020-07-22] MED LIST changes: +ACET325C5 PO; +BUDE10.22 INH; +HYDR-3363 PO; +REXU1TAB3 PO; +ROBA750T4 PO; +SOMA350T PO; +TEST200I14 SQ
[2020-07-22 11:50] LABS: HEMOGLOBIN A1c 6.2 %
[2020-07-22 12:02] LABS: ALBUMIN 4.6 GM/DL (3.2-5.2); ALT/SGPT 50 U/L (12-78); BILIRUBIN,TOTAL 0.4 MG/DL (0.2-1.0); BLOOD UREA NITROGEN 18 MG/DL (7-18); CALCIUM LEVEL 9.8 MG/DL (8.5-10.1); CARBON DIOXIDE LEVEL 28 MEQ/L (21-32); CHLORIDE LEVEL 100 MEQ/L (98-107); CREATININE FOR GFR 1.09 MG/DL (0.70-1.30); GLOMERULAR FILTRATION RATE > 60.0 (>60); GLUCOSE, FASTING 133 MG/DL (70-100); POTASSIUM SERUM 4.4 MEQ/L (3.5-5.1); SODIUM LEVEL 136 MEQ/L (136-145); TOTAL PROTEIN 7.8 GM/DL (6.4-8.2)
[2020-07-22 12:05] LABS: CREATININE, URINE 73.3 MG/DL; MALB URINE SIEMENS < 5.0 MG/L; MAU/CREAT RATIO 6.8 MCG/MG (0.0-30.0)
== END ==
LOC: M PLALAB 09:09
PROVIDERS: ATTEND Family Medicine
DX: E11.9 Type 2 diabetes mellitus without complications (principal); E55.9 Vitamin D deficiency, unspecified

== ENCOUNTER 2020-08-19 16:26 | Emergency (ER) | payer MEDICARE ==
[~2020-08-19] VITALS: Ht 180.3 cm; Wt 89.1 kg
[~2020-08-19 16:26] MED LIST changes: -BUDE10.22 INH; -HYDR-3363 PO; -REXU1TAB3 PO; -ROBA750T4 PO; -SOMA350T PO; -TEST200I14 SQ
[2020-08-19] MEDS ORDERED: HYDR-3363 PO (16:34)
[2020-08-19] MEDS ORDERED: REXU1TAB3 PO (16:34)
[2020-08-19] MEDS ORDERED: BUDE10.22 INH (16:34)
[2020-08-19] MEDS ORDERED: SOMA350T PO (16:34)
[2020-08-19] MEDS ORDERED: ALPR1TAB3 PO (16:34)
[2020-08-19] MEDS ORDERED: TEST200I14 SQ (16:34)
[2020-08-19] MEDS ORDERED: diazePAM 10 MG TAB PO ONE (18:15)
[2020-08-19] MEDS ORDERED: KETOROLAC 60MG 2ML VIAL IM ONE (18:15)
[2020-08-19] MEDS ORDERED: LIDOCAINE 5% (LIDODERM) PATCH TD ONE (18:15)
[2020-08-19] MEDS ORDERED: ROBA750T4 PO (18:27)
[2020-08-19] MEDS ORDERED: NAPR-837 PO (18:27)
[2020-08-19 18:58] VITALS: BP 137/89
[2020-08-19] MEDS ORDERED: **NOTE PATIENT COMMENT** MISC XX SCH (21:00)
== END 2020-08-19 19:00 | disposition home or self-care (01) ==
LOC: M ED 16:26
DX: M62.830 Muscle spasm of back (principal); E10.9 Type 1 diabetes mellitus without complications; E78.5 Hyperlipidemia, unspecified; Z88.0 Allergy status to penicillin; Z88.1 Allergy status to other antibiotic agents; Z88.8 Allergy status to other drugs, medicaments and biological substances; Z79.899 Other long term (current) drug therapy
CPT/HCPCS: 96372; 99283; J1885

== ENCOUNTER → 2020-09-10 | Outpatient (CLI) | payer MEDICARE ==
[~2020-09-10] MED LIST changes: +BUDE10.22 INH; +HYDR-3363 PO; +REXU1TAB3 PO; +ROBA750T4 PO; +SOMA350T PO; +TEST200I14 SQ
[2020-09-10 11:14] LABS: HEMATOCRIT 50.4 % (42.0-52.0); HEMOGLOBIN 16.7 g/dl (13.5-17.5)
== END ==
LOC: M PLALAB 08:06
PROVIDERS: ATTEND Nurse Practitioner Family
DX: E29.1 Testicular hypofunction (principal)

== ENCOUNTER 2020-09-22 12:03 | Emergency (ER) | payer MEDICARE ==
[~2020-09-22] VITALS: Ht 180.3 cm; Wt 92.8 kg
[~2020-09-22 12:03] MED LIST changes: -JARD1TAB3; +JARD1TAB3 PO; -TRUL10IN; +TRUL10IN IM
[2020-09-22 13:17] LABS: BASO # 0.1 10^3/uL (0.0-0.2); BASO % 0.8 % (0.0-1.0); EOS # 0.1 10^3/uL (0.0-0.5); EOS % 1.2 % (0.0-3.0); HEMATOCRIT 47.1 % (42.0-52.0); HEMOGLOBIN 15.3 g/dl (13.5-17.5); LYMPH # 1.2 10^3/uL (1.5-5.0); MEAN CORPUSCULAR HEMOGLOBIN 26.5 pg (27.0-33.0); MEAN CORPUSCULAR HGB CONC 32.5 g/dl (32.0-36.5); MEAN CORPUSCULAR VOLUME 81.6 fl (80.0-96.0); MONO # 0.3 10^3/uL (0.0-0.8); MONO % 5.2 % (0.0-5.0); NEUTROPHILS # 4.7 10^3/uL (1.5-8.5); NEUTROPHILS % 72.9 % (36.0-66.0); PLATELET COUNT, AUTOMATED 146 10^3/uL (150-450); RED BLOOD COUNT 5.77 10^6/uL (4.30-6.10); WHITE BLOOD COUNT 6.5 10^3/uL (4.0-10.0)
--- NOTE | 2020-09-22 13:51 | REP ---
INDICATION: CHEST PAIN COMPARISON: 03/09/2020 TECHNIQUE: Portable AP view of the chest FINDINGS: The mediastinum and cardiac silhouette are stable and within normal limits for portable technique. The lung patel are clear without acute consolidation, effusion, or pneumothorax. Skeletal structures are intact. IMPRESSION: No acute cardiopulmonary process appreciated. <Electronically signed by Lavelle Sylvester > 09/22/20 [id number]
[2020-09-22 13:55] LABS: BLOOD UREA NITROGEN 12 MG/DL (7-18); CALCIUM LEVEL 9.3 MG/DL (8.5-10.1); CARBON DIOXIDE LEVEL 27 MEQ/L (21-32); CHLORIDE LEVEL 101 MEQ/L (98-107); CK-MB VALUE MASS 1.3 NG/ML (<3.6); CPK CREATINE PHOSPHOKINASE 80 U/L (39-308); CREATININE FOR GFR 1.06 MG/DL (0.70-1.30); GLOMERULAR FILTRATION RATE > 60.0 (>60); GLUCOSE, FASTING 199 MG/DL (70-100); MB/CK RELATIVE INDEX 1.62 (< OR =4); POTASSIUM SERUM 4.3 MEQ/L (3.5-5.1); SODIUM LEVEL 136 MEQ/L (136-145); TROPONIN I < 0.02 NG/ML (< 0.10)
[2020-09-22 15:34] LABS: ALBUMIN 4.4 GM/DL (3.2-5.2); ALT/SGPT 54 U/L (12-78); BILIRUBIN,DIRECT < 0.1 MG/DL (0.0-0.2); BILIRUBIN,TOTAL 0.3 MG/DL (0.2-1.0); LIPASE 273 U/L (73-393); TOTAL PROTEIN 7.5 GM/DL (6.4-8.2)
[2020-09-22 16:49] LABS: INR 1.13; PROTHROMBIN TIME 14.8 SECONDS (12.5-14.3)
[2020-09-22 16:50] LABS: PARTIAL THROMBOPLASTIN TIME 26.4 SECONDS (24.2-38.5)
[2020-09-22] MEDS ORDERED: KETOROLAC 30 MG/ML 1ML VIAL IV ONE (17:15)
[2020-09-22 17:44] LABS: CK-MB VALUE MASS 1.1 NG/ML (<3.6); CPK CREATINE PHOSPHOKINASE 48 U/L (39-308); MB/CK RELATIVE INDEX 2.29 (< OR =4); TROPONIN I < 0.02 NG/ML (< 0.10)
[2020-09-22] MEDS ORDERED: KETO10TAB PO (18:38)
[2020-09-22 18:45] VITALS: BP 147/94
--- NOTE | 2020-09-24 07:54 | ECGEPIP ---
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
--- NOTE | 2020-09-24 07:58 | ECGEPIP ---
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
== END 2020-09-22 18:52 | disposition home or self-care (01) ==
LOC: M ED 12:03
DX: R07.89 Other chest pain (principal); R09.81 Nasal congestion; R05 Cough; Z20.828 Contact with and (suspected) exposure to other viral communicable diseases; E11.9 Type 2 diabetes mellitus without complications; E78.5 Hyperlipidemia, unspecified; E03.9 Hypothyroidism, unspecified; Z88.0 Allergy status to penicillin; Z88.1 Allergy status to other antibiotic agents; Z88.8 Allergy status to other drugs, medicaments and biological substances; Z79.899 Other long term (current) drug therapy
CPT/HCPCS: 71045; 80048; 80076; 82550; 82553; 83690; 84484; 85025; 85610; 85730; 93005; 93041; 94760; 96374; 99285; J1885; U0002

== ENCOUNTER → 2020-10-26 | Outpatient (CLI) | payer MEDICARE ==
[~2020-10-26] MED LIST changes: +KETO10TAB PO
[2020-10-26 10:36] LABS: COLLAGEN EPINEPHRINE 120 SECONDS (74-162)
[2020-10-26 10:37] LABS: PLATELET COUNT, AUTOMATED 177 10^3/uL (150-450)
[2020-10-26 10:49] LABS: INR 0.96
[2020-10-26 10:50] LABS: PARTIAL THROMBOPLASTIN TIME 28.9 SECONDS (24.2-38.5)
== END ==
LOC: M PLALAB 08:24
PROVIDERS: ATTEND Physician Assistant
DX: M47.817 Spondylosis without myelopathy or radiculopathy, lumbosacral region (principal)

== ENCOUNTER → 2020-11-08 | Outpatient (CLI) | payer MEDICARE ==
[~2020-11-08] MED LIST changes: +LISI10TA22; -LISI10TA4
== END ==
LOC: M LABSMTC 09:34
PROVIDERS: ATTEND Family Medicine
DX: Z20.822 Contact with and (suspected) exposure to COVID-19 (principal)

== ENCOUNTER → 2021-01-10 | Outpatient (REF) | payer MEDICARE ==
[2021-01-10 13:12] LABS: ALBUMIN 4.6 GM/DL (3.2-5.2); ALT/SGPT 85 U/L (12-78); BILIRUBIN,TOTAL 0.4 MG/DL (0.2-1.0); BLOOD UREA NITROGEN 10 MG/DL (7-18); CALCIUM LEVEL 9.6 MG/DL (8.5-10.1); CARBON DIOXIDE LEVEL 30 MEQ/L (21-32); CHLORIDE LEVEL 99 MEQ/L (98-107); CHOLESTEROL LEVEL 304 MG/DL (<200); CHOLESTEROL RISK RATIO 8.685 (<5); CREATININE FOR GFR 1.11 MG/DL (0.70-1.30); GLOMERULAR FILTRATION RATE > 60.0 (>60); GLUCOSE, FASTING 205 MG/DL (70-100); HDL CHOLESTEROL 35 MG/DL (>40); NON-HDL-C 269 MG/DL; POTASSIUM SERUM 4.2 MEQ/L (3.5-5.1); SODIUM LEVEL 136 MEQ/L (136-145); TOTAL PROTEIN 7.8 GM/DL (6.4-8.2); TRIGLYCERIDES LEVEL 719 MG/DL (<150)
[2021-01-10 13:22] LABS: CREATININE, URINE 28.6 MG/DL; MALB URINE SIEMENS 5.7 MG/L; MAU/CREAT RATIO 19.9 MCG/MG (0.0-30.0)
[2021-01-10 15:13] LABS: HEMOGLOBIN A1c 6.9 %
== END ==
LOC: M PLALAB 08:05
PROVIDERS: ATTEND Family Medicine
DX: E11.9 Type 2 diabetes mellitus without complications (principal); E55.9 Vitamin D deficiency, unspecified; E78.2 Mixed hyperlipidemia; E03.9 Hypothyroidism, unspecified

== ENCOUNTER 2021-01-18 23:35 | Emergency (ER) | payer MEDICARE ==
[~2021-01-18] VITALS: Ht 180.3 cm; Wt 92.6 kg
[2021-01-19] MEDS ORDERED: KETOROLAC 60MG 2ML VIAL IM ONE
[2021-01-19] MEDS ORDERED: NAPR-837 PO (01:00)
[2021-01-19] MEDS ORDERED: CYCL5TAB PO (01:00)
[2021-01-19 01:13] VITALS: BP 178/111
== END 2021-01-19 01:17 | disposition home or self-care (01) ==
LOC: M ED 23:35
DX: M62.830 Muscle spasm of back (principal); R11.0 Nausea; E11.9 Type 2 diabetes mellitus without complications; E78.5 Hyperlipidemia, unspecified; R51.9 Headache, unspecified; J45.909 Unspecified asthma, uncomplicated; D86.9 Sarcoidosis, unspecified; F33.9 Major depressive disorder, recurrent, unspecified; F41.9 Anxiety disorder, unspecified; Z88.0 Allergy status to penicillin; Z88.1 Allergy status to other antibiotic agents; Z88.8 Allergy status to other drugs, medicaments and biological substances; Z79.899 Other long term (current) drug therapy
CPT/HCPCS: 81001; 96372; 99283; J1885

== ENCOUNTER → 2021-01-27 | Outpatient (REF) | payer MEDICARE ==
[~2021-01-27] MED LIST changes: +CYCL5TAB PO
== END ==
LOC: M SFHCPLAZ 17:05
PROVIDERS: ATTEND Family Medicine
DX: G89.4 Chronic pain syndrome (principal)

== ENCOUNTER → 2021-03-02 | Outpatient (CLI) | payer MEDICARE ==
[2021-03-02 10:19] LABS: HEMATOCRIT 46.4 % (42.0-52.0); HEMOGLOBIN 15.3 g/dl (13.5-17.5)
== END ==
LOC: M PLALAB 08:09
PROVIDERS: ATTEND Nurse Practitioner Family
DX: E29.1 Testicular hypofunction (principal)
CPT/HCPCS: 36415; 84403; 85014; 85018; G0103

== ENCOUNTER 2021-04-09 23:02 | Emergency (ER) | payer MEDICARE ==
[~2021-04-09] VITALS: Ht 180.3 cm; Wt 92.1 kg
[~2021-04-09 23:02] MED LIST changes: -ARIP1TAB2 PO; +ARIP1TAB43 PO
[2021-04-10 05:39] VITALS: BP 165/107
[2021-04-10] MEDS ORDERED: HYDR-3713 PO (07:57)
== END 2021-04-10 08:10 | disposition home or self-care (01) ==
LOC: M ED 23:02
DX: G89.29 Other chronic pain (principal); M54.41 Lumbago with sciatica, right side; M51.37 Other intervertebral disc degeneration, lumbosacral region; Z88.0 Allergy status to penicillin; Z88.1 Allergy status to other antibiotic agents; Z88.8 Allergy status to other drugs, medicaments and biological substances; Z79.899 Other long term (current) drug therapy

== ENCOUNTER 2021-06-27 10:17 | Emergency (ER) | payer MEDICARE ==
[~2021-06-27] VITALS: Ht 180.3 cm; Wt 89.5 kg
[~2021-06-27 10:17] MED LIST changes: +HYDR-3713 PO
[2021-06-27] MEDS ORDERED: KETOROLAC 60MG 2ML VIAL IM ONE (12:55)
[2021-06-27 13:36] VITALS: BP 138/91
== END 2021-06-27 13:40 | disposition home or self-care (01) ==
LOC: M ED 10:17
DX: S39.012A Strain of muscle, fascia and tendon of lower back, initial encounter (principal); X50.0XXA Overexertion from strenuous movement or load, initial encounter; M54.30 Sciatica, unspecified side; E11.9 Type 2 diabetes mellitus without complications; F32.9 Major depressive disorder, single episode, unspecified; F41.9 Anxiety disorder, unspecified; Z88.0 Allergy status to penicillin; Y92.9 Unspecified place or not applicable; Y93.9 Activity, unspecified; Y99.9 Unspecified external cause status
CPT/HCPCS: 96372; 99283; J1885

== ENCOUNTER → 2021-06-28 | Outpatient (CLI) | payer MEDICARE ==
[2021-06-28 11:11] LABS: HEMOGLOBIN A1c 12.5 %
[2021-06-28 11:51] LABS: ALBUMIN 4.2 GM/DL (3.2-5.2); ALT/SGPT 50 U/L (12-78); BILIRUBIN,DIRECT 0.1 MG/DL (0.0-0.2); BILIRUBIN,TOTAL 0.5 MG/DL (0.2-1.0); CHOLESTEROL LEVEL 233 MG/DL (<200); CHOLESTEROL RISK RATIO 7.766 (<5); HDL CHOLESTEROL 30 MG/DL (>40); NON-HDL-C 203 MG/DL; TOTAL 25(OH) VITAMIN D 37.4 NG/ML (30.0-100.0); TOTAL PROTEIN 7.2 GM/DL (6.4-8.2); TRIGLYCERIDES LEVEL 1185 MG/DL (<150)
== END ==
LOC: M PLALAB 07:49
PROVIDERS: ATTEND Family Medicine
DX: E55.9 Vitamin D deficiency, unspecified (principal); E11.9 Type 2 diabetes mellitus without complications; E78.2 Mixed hyperlipidemia; G89.4 Chronic pain syndrome; Z79.899 Other long term (current) drug therapy

== ENCOUNTER → 2021-08-26 | Outpatient (CLI) | payer MEDICARE ==
[2021-08-26 11:16] LABS: HEMATOCRIT 45.8 % (42.0-52.0); HEMOGLOBIN 15.1 g/dl (13.5-17.5)
== END ==
LOC: M PLALAB 07:55
PROVIDERS: ATTEND Nurse Practitioner Family
DX: E29.1 Testicular hypofunction (principal)

== ENCOUNTER → 2021-10-18 | Outpatient (CLI) | payer MEDICARE ==
[2021-10-18 10:43] LABS: HEMOGLOBIN A1c 10.3 %
== END ==
LOC: M PLALAB 07:38
PROVIDERS: ATTEND Family Medicine
DX: E11.29 Type 2 diabetes mellitus with other diabetic kidney complication (principal)

== ENCOUNTER → 2021-12-12 | Outpatient (CLI) | payer MEDICARE | LOC: M PLALAB 07:17 | PROVIDERS: ATTEND Family Medicine | DX: E29.1 Testicular hypofunction (principal) ==

== ENCOUNTER → 2021-12-21 | Outpatient (CLI) | payer MEDICARE ==
[2021-12-21 11:06] LABS: HEMATOCRIT 48.8 % (42.0-52.0); HEMOGLOBIN 16.1 g/dl (13.5-17.5); MEAN CORPUSCULAR HEMOGLOBIN 27.5 pg (27.0-33.0); MEAN CORPUSCULAR VOLUME 83.4 fl (80.0-96.0); PLATELET COUNT, AUTOMATED 163 10^3/uL (150-450); RED BLOOD COUNT 5.85 10^6/uL (4.30-6.10); WHITE BLOOD COUNT 6.1 10^3/uL (4.0-10.0)
[2021-12-21 13:20] LABS: ALBUMIN 4.7 GM/DL (3.2-5.2); ALT/SGPT 71 U/L (12-78); BILIRUBIN,TOTAL 0.4 MG/DL (0.2-1.0); BLOOD UREA NITROGEN 9 MG/DL (7-18); C REACTIVE PROTEIN QUANTITATIV 0.45 MG/DL (0.00-0.30); CALCIUM LEVEL 9.8 MG/DL (8.5-10.1); CARBON DIOXIDE LEVEL 28 MEQ/L (21-32); CHLORIDE LEVEL 98 MEQ/L (98-107); CREATININE FOR GFR 1.34 MG/DL (0.70-1.30); GLOMERULAR FILTRATION RATE > 60.0 (>60); GLUCOSE, FASTING 402 MG/DL (70-100); LIPASE 391 U/L (73-393); MAGNESIUM LEVEL 2.4 MG/DL (1.8-2.4); SODIUM LEVEL 134 MEQ/L (136-145); TOTAL PROTEIN 7.8 GM/DL (6.4-8.2); VITAMIN B12 LEVEL 737 PG/ML (247-911)
== END ==
LOC: M PLALAB 07:06
PROVIDERS: ATTEND Internal Medicine Gastroenterology
DX: R10.84 Generalized abdominal pain (principal); R11.2 Nausea with vomiting, unspecified; E56.9 Vitamin deficiency, unspecified

== ENCOUNTER → 2022-01-24 | Outpatient (CLI) | payer MEDICARE ==
[2022-01-24 12:19] LABS: HEMOGLOBIN A1c 8.7 %
[2022-01-24 12:26] LABS: ALBUMIN 4.6 GM/DL (3.2-5.2); ALT/SGPT 78 U/L (12-78); BILIRUBIN,TOTAL 0.5 MG/DL (0.2-1.0); BLOOD UREA NITROGEN 13 MG/DL (7-18); CALCIUM LEVEL 9.8 MG/DL (8.5-10.1); CARBON DIOXIDE LEVEL 27 MEQ/L (21-32); CHLORIDE LEVEL 102 MEQ/L (98-107); GLOMERULAR FILTRATION RATE > 60.0 (>60); GLUCOSE, FASTING 164 MG/DL (70-100); POTASSIUM SERUM 3.4 MEQ/L (3.5-5.1); SODIUM LEVEL 138 MEQ/L (136-145); TOTAL PROTEIN 7.6 GM/DL (6.4-8.2)
== END ==
LOC: M PLALAB 07:08
PROVIDERS: ATTEND Family Medicine
DX: E11.65 Type 2 diabetes mellitus with hyperglycemia (principal)

== ENCOUNTER 2022-02-25 06:14 | Emergency (ER) | payer MEDICARE ==
[~2022-02-25] VITALS: Ht 180.3 cm; Wt 94.9 kg
[2022-02-25] MEDS ORDERED: KETOROLAC 60MG 2ML VIAL IM ONE (07:45)
[2022-02-25] MEDS ORDERED: ACET-716 PO (07:48)
[2022-02-25 08:12] VITALS: BP 140/70
== END 2022-02-25 08:20 | disposition home or self-care (01) ==
LOC: M ED 06:14
DX: Z76.0 Encounter for issue of repeat prescription (principal); M54.50 Low back pain, unspecified; E11.9 Type 2 diabetes mellitus without complications; E78.5 Hyperlipidemia, unspecified; J45.909 Unspecified asthma, uncomplicated; F41.9 Anxiety disorder, unspecified; F32.A Depression, unspecified; Z79.84 Long term (current) use of oral hypoglycemic drugs; Z79.899 Other long term (current) drug therapy
CPT/HCPCS: 96372; 99283; J1885

== ENCOUNTER → 2022-02-28 | Outpatient (CLI) | payer MEDICARE ==
[~2022-02-28] MED LIST changes: +ACET-716 PO
== END ==
LOC: M WHC 07:18
PROVIDERS: ATTEND Internal Medicine Gastroenterology
DX: R10.84 Generalized abdominal pain (principal); R19.7 Diarrhea, unspecified; R11.2 Nausea with vomiting, unspecified

== ENCOUNTER → 2022-03-09 | Outpatient (CLI) | payer MEDICARE ==
[2022-03-09 10:15] LABS: BASO # 0.1 10^3/uL (0.0-0.2); BASO % 0.9 % (0.0-1.0); EOS # 0.1 10^3/uL (0.0-0.5); EOS % 1.5 % (0.0-3.0); HEMOGLOBIN 16.4 g/dl (13.5-17.5); LYMPH # 1.7 10^3/uL (1.5-5.0); LYMPH % 32.5 % (24.0-44.0); MEAN CORPUSCULAR HEMOGLOBIN 27.2 pg (27.0-33.0); MEAN CORPUSCULAR HGB CONC 34.9 g/dl (32.0-36.5); MEAN CORPUSCULAR VOLUME 78.1 fl (80.0-96.0); MONO # 0.3 10^3/uL (0.0-0.8); MONO % 5.3 % (2.0-8.0); NEUTROPHILS # 3.2 10^3/uL (1.5-8.5); NEUTROPHILS % 59.4 % (36.0-66.0); PLATELET COUNT, AUTOMATED 155 10^3/uL (150-450); RED BLOOD COUNT 6.02 10^6/uL (4.30-6.10); WHITE BLOOD COUNT 5.3 10^3/uL (4.0-10.0)
[2022-03-09 10:56] LABS: ERYTHROCYTE SEDIMENTATION RATE 9 mm/hr (0-15)
== END ==
LOC: M PLALAB 07:15
PROVIDERS: ATTEND Student in an Organized Health Care Education/Training Program
DX: M79.10 Myalgia, unspecified site (principal); J06.9 Acute upper respiratory infection, unspecified

== ENCOUNTER → 2022-04-20 | Outpatient (CLI) | payer MEDICARE ==
[2022-04-20 10:38] LABS: HEMATOCRIT 43.1 % (42.0-52.0); HEMOGLOBIN 14.3 g/dl (13.5-17.5)
== END ==
LOC: M PLALAB 07:04
PROVIDERS: ATTEND Nurse Practitioner Family
DX: E29.1 Testicular hypofunction (principal)
CPT/HCPCS: 36415; 84403; 85014; 85018; G0103

== ENCOUNTER 2022-04-30 04:22 | Emergency (ER) | payer MEDICARE ==
[~2022-04-30] VITALS: Ht 180.3 cm; Wt 92.8 kg
[2022-04-30 04:22] VITALS: BP 160/94
== END 2022-04-30 05:30 | disposition left against medical advice (07) ==
LOC: M ED 04:22
DX: Z53.21 Procedure and treatment not carried out due to patient leaving prior to being seen by health care provider (principal)

== ENCOUNTER → 2022-07-11 | Outpatient (CLI) | payer MEDICARE ==
[2022-07-11 11:16] LABS: HEMOGLOBIN A1c 10.4 %
[2022-07-11 11:40] LABS: CREATININE, URINE 16.8 MG/DL; MALB URINE SIEMENS 6.6 MG/L; MAU/CREAT RATIO 39.2 MCG/MG (0.0-30.0)
== END ==
LOC: M PLALAB 07:09
PROVIDERS: ATTEND Family Medicine
DX: E11.65 Type 2 diabetes mellitus with hyperglycemia (principal)

== ENCOUNTER → 2022-07-13 | Outpatient (REF) | payer MEDICARE ==
[2022-07-13 18:15] LABS: CREATININE, URINE 28.3 MG/DL; MAU/CREAT RATIO 367.4 MCG/MG (0.0-30.0)
== END ==
LOC: M SFHCPLAZ 16:42
PROVIDERS: ATTEND Family Medicine
DX: R80.9 Proteinuria, unspecified (principal)

== ENCOUNTER 2022-08-12 22:01 | Emergency (ER) | payer MEDICARE ==
[~2022-08-12] VITALS: Ht 180.3 cm; Wt 91.8 kg
[2022-08-13 02:07] VITALS: BP 148/91
== END 2022-08-13 02:43 | disposition left against medical advice (07) ==
LOC: M ED 22:01
DX: Z53.21 Procedure and treatment not carried out due to patient leaving prior to being seen by health care provider (principal)

== ENCOUNTER → 2022-08-30 | Outpatient (CLI) | payer MEDICARE | LOC: M RAD 10:33 | PROVIDERS: ATTEND Family Medicine | DX: E11.29 Type 2 diabetes mellitus with other diabetic kidney complication (principal); E11.3393 Type 2 diabetes mellitus with moderate nonproliferative diabetic retinopathy without macular edema, bilateral; R11.0 Nausea | CPT/HCPCS: 78264; A9541 ==

== ENCOUNTER → 2022-10-03 | Outpatient (CLI) | payer MEDICARE ==
[2022-10-03 11:53] LABS: HEMATOCRIT 48.3 % (42.0-52.0); HEMOGLOBIN 15.7 g/dl (13.5-17.5); MEAN CORPUSCULAR HEMOGLOBIN 27.4 pg (27.0-33.0); MEAN CORPUSCULAR HGB CONC 32.5 g/dl (32.0-36.5); MEAN CORPUSCULAR VOLUME 84.4 fl (80.0-96.0); PLATELET COUNT, AUTOMATED 172 10^3/uL (150-450); RED BLOOD COUNT 5.72 10^6/uL (4.30-6.10); WHITE BLOOD COUNT 5.3 10^3/uL (4.0-10.0)
[2022-10-03 12:28] LABS: ALBUMIN 4.3 G/DL (3.2-5.2); BILIRUBIN,DIRECT 0.1 MG/DL (<0.4); BILIRUBIN,TOTAL 0.6 MG/DL (0.3-1.2); TOTAL PROTEIN 7.4 G/DL (5.7-8.2)
[2022-10-03 12:29] LABS: THYROID STIMULATING HORMONE 1.185 uIU/ML (0.55-4.78); TOTAL 25(OH) VITAMIN D 55.8 NG/ML (20.0-100.0)
[2022-10-03 12:31] LABS: CREATININE, URINE 25.2 MG/DL
[2022-10-03 12:33] LABS: MALB URINE SIEMENS < 3.0 MG/DL; MAU/CREAT RATIO 11.9 MCG/MG (0.0-30.0)
[2022-10-03 14:21] LABS: HEMOGLOBIN A1c 8.2 % (4.0-6.0)
== END ==
LOC: M PLALAB 07:12
PROVIDERS: ATTEND Family Medicine
DX: K75.81 Nonalcoholic steatohepatitis (NASH) (principal); F32.9 Major depressive disorder, single episode, unspecified; L71.9 Rosacea, unspecified; E11.29 Type 2 diabetes mellitus with other diabetic kidney complication; E88.9 Metabolic disorder, unspecified; R80.9 Proteinuria, unspecified; Z79.899 Other long term (current) drug therapy

== ENCOUNTER → 2022-10-19 | Outpatient (CLI) | payer MEDICARE | LOC: M RAD 07:12 | PROVIDERS: ATTEND Family Medicine | DX: K75.81 Nonalcoholic steatohepatitis (NASH) (principal) ==

== ENCOUNTER → 2022-11-13 | Outpatient (CLI) | payer MEDICARE ==
[2022-11-13 12:14] LABS: HEMATOCRIT 46.7 % (42.0-52.0); HEMOGLOBIN 15.4 g/dl (13.5-17.5)
== END ==
LOC: M PLALAB 06:54
PROVIDERS: ATTEND Nurse Practitioner Family
DX: E29.1 Testicular hypofunction (principal)

== ENCOUNTER → 2023-01-19 | Outpatient (CLI) | payer MEDICARE | LOC: M PLALAB 11:41 | PROVIDERS: ATTEND Student in an Organized Health Care Education/Training Program | DX: E11.69 Type 2 diabetes mellitus with other specified complication (principal) ==

== ENCOUNTER → 2023-01-19 | Outpatient (REF) | payer MEDICARE | LOC: M SFHCPLAZ 11:28 | PROVIDERS: ATTEND Family Medicine | DX: E11.69 Type 2 diabetes mellitus with other specified complication (principal) ==

== ENCOUNTER → 2023-01-19 | Outpatient (CLI) | payer MEDICARE ==
[2023-01-19 13:54] LABS: HEMOGLOBIN A1c 7.6 % (4.0-6.0)
[2023-01-19 14:01] LABS: ALKALINE PHOSPHATASE 73 U/L (46-116); ALT/SGPT 41 U/L (7.0-40); AST/SGOT 17 U/L (<34); BILIRUBIN,TOTAL 0.6 MG/DL (0.3-1.2); BLOOD UREA NITROGEN 15 MG/DL (9-23); CALCIUM LEVEL 9.8 MG/DL (8.5-10.1); CARBON DIOXIDE LEVEL 25 MMOL/L (20-31); CHLORIDE LEVEL 98 MMOL/L (98-107); CHOLESTEROL LEVEL 262 MG/DL (<200); CHOLESTEROL RISK RATIO 7.52 (<5); CREATININE FOR GFR 1.01 MG/DL (0.70-1.30); GLOMERULAR FILTRATION RATE > 60.0 (>60); GLUCOSE, FASTING 130 MG/DL (60-100); HDL CHOLESTEROL 34.8 MG/DL (>40); NON-HDL-C 227.2 MG/DL; POTASSIUM SERUM 3.6 MMOL/L (3.5-5.1); SODIUM LEVEL 137 MMOL/L (136-145); TOTAL PROTEIN 7.9 G/DL (5.7-8.2); TRIGLYCERIDES LEVEL 381 MG/DL (<150)
[2023-01-19 14:03] LABS: CREATININE, URINE 31.2 MG/DL; MALB URINE SIEMENS < 3.0 MG/L; MAU/CREAT RATIO 9.6 MCG/MG (0.0-30.0)
== END ==
LOC: M PLALAB 11:44
PROVIDERS: ATTEND Family Medicine
DX: E11.43 Type 2 diabetes mellitus with diabetic autonomic (poly)neuropathy (principal); K75.81 Nonalcoholic steatohepatitis (NASH); E78.2 Mixed hyperlipidemia; E55.9 Vitamin D deficiency, unspecified

== ENCOUNTER → 2023-01-24 | Outpatient (CLI) | payer MEDICARE | LOC: M PLAIMG 07:16 | PROVIDERS: ATTEND Student in an Organized Health Care Education/Training Program | DX: M54.50 Low back pain, unspecified (principal); M47.816 Spondylosis without myelopathy or radiculopathy, lumbar region ==

== ENCOUNTER → 2023-06-18 | Outpatient (CLI) | payer MEDICARE ==
[~2023-06-18] MED LIST changes: +DICY-61 PO; -DICY10CA13 PO; +LORA1TAB23; -LORA1TAB4
[2023-06-18 10:36] LABS: HEMATOCRIT 46.8 % (42.0-52.0); HEMOGLOBIN 15.5 g/dl (13.5-17.5)
== END ==
LOC: M PLALAB 07:15
PROVIDERS: ATTEND Nurse Practitioner Family
DX: E29.1 Testicular hypofunction (principal); Z12.5 Encounter for screening for malignant neoplasm of prostate
CPT/HCPCS: 36415; 84403; 85014; 85018; G0103

== ENCOUNTER → 2023-08-27 | Outpatient (CLI) | payer MEDICARE ==
[2023-08-27 12:36] LABS: CHOLESTEROL LEVEL 261 MG/DL (<200); CHOLESTEROL RISK RATIO 6.74 (<5); HDL CHOLESTEROL 38.7 MG/DL (>40); NON-HDL-C 222.3 MG/DL; TRIGLYCERIDES LEVEL 677 MG/DL (<150)
[2023-08-27 13:01] LABS: HEMOGLOBIN A1c 11.1 % (4.0-6.0)
== END ==
LOC: M PLALAB 06:51
PROVIDERS: ATTEND Family Medicine
DX: E11.29 Type 2 diabetes mellitus with other diabetic kidney complication (principal); E78.2 Mixed hyperlipidemia; K75.81 Nonalcoholic steatohepatitis (NASH)

== ENCOUNTER → 2023-11-20 | Outpatient (CLI) | payer MEDICARE ==
[2023-11-20 12:10] LABS: HEMOGLOBIN A1c 9.7 % (4.0-6.0)
[2023-11-20 12:16] LABS: CHOLESTEROL LEVEL 235 MG/DL (<200); CHOLESTEROL RISK RATIO 6.65 (<5); HDL CHOLESTEROL 35.3 MG/DL (>40); NON-HDL-C 199.7 MG/DL; TRIGLYCERIDES LEVEL 400 MG/DL (<150)
[2023-11-20 12:18] LABS: THYROID STIMULATING HORMONE 4.553 uIU/ML (0.55-4.78)
== END ==
LOC: M PLALAB 07:05
PROVIDERS: ATTEND Family Medicine
DX: E11.65 Type 2 diabetes mellitus with hyperglycemia (principal); E78.2 Mixed hyperlipidemia; F32.2 Major depressive disorder, single episode, severe without psychotic features

== ENCOUNTER 2024-01-12 08:55 | Observation (INO) | payer MEDICARE ==
[~2024-01-12] VITALS: Ht 180.3 cm; Wt 91.4 kg
[2024-01-12] MEDS ORDERED: PROP80TA (09:19)
[2024-01-12] MEDS ORDERED: SYMB16INH INH (09:19)
[2024-01-12] MEDS ORDERED: LITH300T2 (09:19)
[2024-01-12] MEDS ORDERED: DIAZ10TA2 (09:19)
[2024-01-12] MEDS ORDERED: ROSU40TA4 (09:19)
[2024-01-12] MEDS ORDERED: FENO134C19 (09:19)
[2024-01-12] MEDS ORDERED: HYDR100C (09:19)
[2024-01-12] MEDS ORDERED: OLAN1TAB20 (09:19)
[2024-01-12] MEDS ORDERED: FLUTISP (09:19)
[2024-01-12 10:12] LABS: BASO % 0.6 % (0.0-1.0); EOS # 0.1 10^3/uL (0.0-0.5); EOS % 2.1 % (0.0-3.0); HEMATOCRIT 43.4 % (42.0-52.0); HEMOGLOBIN 15.1 g/dl (13.5-17.5); LYMPH # 1.9 10^3/uL (1.5-5.0); LYMPH % 29.3 % (24.0-44.0); MEAN CORPUSCULAR HEMOGLOBIN 28.1 pg (27.0-33.0); MEAN CORPUSCULAR HGB CONC 34.8 g/dl (32.0-36.5); MEAN CORPUSCULAR VOLUME 80.7 fl (80.0-96.0); MONO # 0.3 10^3/uL (0.0-0.8); MONO % 5.1 % (2.0-8.0); NEUTROPHILS # 4.2 10^3/uL (1.5-8.5); NEUTROPHILS % 62.6 % (36.0-66.0); PLATELET COUNT, AUTOMATED 173 10^3/uL (150-450); RED BLOOD COUNT 5.38 10^6/uL (4.30-6.10); WHITE BLOOD COUNT 6.6 10^3/uL (4.0-10.0)
[2024-01-12 10:23] LABS: INR 1.1; PARTIAL THROMBOPLASTIN TIME 28.4 SECONDS (24.8-34.2); PROTHROMBIN TIME 13.9 SECONDS (12.5-14.5)
[2024-01-12] MEDS: PROMETHAZINE 25MG/ML 1ML VIAL IV ONE (10:25)
[2024-01-12] MEDS: NS 1,000 ML IV ONE ×3 (10:25→14:56)
[2024-01-12] MEDS: PANTOPRAZOLE 40MG VIAL IV ONE (10:25)
[2024-01-12] MEDS: SUCRALFATE 1 GM TAB PO ONE (10:25)
[2024-01-12] MEDS ORDERED: ISOVUE-370 76% 100ML VIAL As Ordered ONE (10:34)
[2024-01-12 10:36] LABS: CK-MB VALUE MASS < 1.0 NG/ML (<3.6); LIPASE 39 U/L (12-53)
[2024-01-12 10:37] LABS: ALBUMIN 4.3 G/DL (3.2-5.2); ALKALINE PHOSPHATASE 97 U/L (46-116); ALT/SGPT 95 U/L (7.0-40); AST/SGOT 78 U/L (<34); BILIRUBIN,TOTAL 0.4 MG/DL (0.3-1.2); BLOOD UREA NITROGEN 11 MG/DL (9-23); CALCIUM LEVEL 9.4 MG/DL (8.5-10.1); CARBON DIOXIDE LEVEL 24 MMOL/L (20-31); CHLORIDE LEVEL 103 MMOL/L (98-107); CREATININE FOR GFR 0.78 MG/DL (0.70-1.30); GLOMERULAR FILTRATION RATE > 60.0 (>56); GLUCOSE, FASTING 249 MG/DL (60-100); SODIUM LEVEL 136 MMOL/L (136-145); TOTAL PROTEIN 7.2 G/DL (5.7-8.2)
[2024-01-12] MEDS: ALPRAZolam 0.5 MG TAB PO ONE (10:37)
[2024-01-12 10:39] LABS: LITHIUM LEVEL < 0.10 MMOL/L (1.0-1.20)
[2024-01-12 10:40] LABS: CPK CREATINE PHOSPHOKINASE 46 U/L (46-171); MB/CK RELATIVE INDEX 2.17 (< OR =4)
[2024-01-12] MEDS: DICYCLOMINE 10 MG CAP PO ONE (12:06)
[2024-01-12] MEDS: ACETAMINOPHEN *IV* 1,000 MG in IV 1 EA IV ONE (12:07)
[2024-01-12] MEDS: ONDANSETRON 4MG 2ML VIAL IV ONE (12:07)
[2024-01-12 12:22] LABS: VENOUS BASE EXCESS -2.8 (-2.0-2.0); VENOUS HCO3 23.1 MMOL/L (23.0-27.0); VENOUS O2 SATURATION 80.5 % (60.0-80.0); VENOUS PARTIAL PRESSURE CO2 44.4 mmHg (38.0-50.0); VENOUS PARTIAL PRESSURE O2 44.7 mmHg (30.0-50.0); VENOUS PH 7.335 UNITS (7.330-7.430); VENOUS STANDARD HCO3 21.8 MMOL/L; VENOUS TOTAL CO2 24.5 MMOL/L (24.0-28.0)
[2024-01-12 12:42] LABS: HEMOGLOBIN A1c 9.9 % (4.0-6.0)
[2024-01-12] MEDS: MORPHINE 4 MG/ML 1ML VIAL IV ONE (13:39)
[2024-01-12] MEDS ORDERED: MED REC IN PROGRESS XX SCH (13:40)
[2024-01-12] MEDS ORDERED: GLUCOSE 4GM CHEW TABLET PO PRN (13:45)
[2024-01-12] MEDS ORDERED: GLUCAGON INJ 1MG VIAL SC PRN (13:45)
[2024-01-12] MEDS ORDERED: DEXTROSE 50% 50ML SYRINGE IV PRN (13:45)
[2024-01-12] MEDS ORDERED: SERT50TA29 PO (14:11)
[2024-01-12] MEDS ORDERED: HOME MED LIST COMPLETE! XX SCH (14:15)
[2024-01-12 14:49] LABS: PROCALCITONIN 0.21 ng/ml
[2024-01-12 14:50] LABS: CHOLESTEROL LEVEL 264 MG/DL (<200); CHOLESTEROL RISK RATIO 8.35 (<5); HDL CHOLESTEROL 31.6 MG/DL (>40); NON-HDL-C 232.4 MG/DL; TRIGLYCERIDES LEVEL 1227 MG/DL (<150)
[2024-01-12 14:52] LABS: ERYTHROCYTE SEDIMENTATION RATE 27 mm/hr (0-20)
[2024-01-12] MEDS: KETOROLAC 30 MG/ML 1ML VIAL IV SCH (14:55)
[2024-01-12] MEDS: HYDROMORPHONE HCL 0.5 MG/ 0.5 ML SYRINGE IV ONE (14:55)
[2024-01-12 14:56] VITALS: BP 180/101
[2024-01-12] MEDS: atenoloL 25 MG TAB PO ONE (14:56)
[2024-01-12 15:20] LABS: FREE T4 1.11 NG/DL (0.89-1.76)
[2024-01-12 15:22] LABS: FREE T3 2.8 PG/ML (2.3-4.2)
[2024-01-12 15:55] LABS: BLOOD UREA NITROGEN 8 MG/DL (9-23); CALCIUM LEVEL 8.4 MG/DL (8.5-10.1); CARBON DIOXIDE LEVEL 24 MMOL/L (20-31); CHLORIDE LEVEL 109 MMOL/L (98-107); CREATININE FOR GFR 0.74 MG/DL (0.70-1.30); GLOMERULAR FILTRATION RATE > 60.0 (>56); GLUCOSE, FASTING 240 MG/DL (60-100); POTASSIUM SERUM 3.7 MMOL/L (3.5-5.1); SODIUM LEVEL 139 MMOL/L (136-145)
[2024-01-12] MEDS: NS 1,000 ML IV SCH (17:05)
[2024-01-12] MEDS ORDERED: SUCRALFATE SUSP 1GM/10ML UD PO SCH (17:30)
[2024-01-12] MEDS: oxyCODONE 5MG TAB PO ONE (18:01)
[2024-01-12] MEDS: ONDANSETRON 4MG 2ML VIAL IV PRN (18:48)
[2024-01-12] MEDS: SYMBICORT 160/4.5MCG INHALER 6GM INH SCH (20:10)
[2024-01-12 20:42] VITALS: BP 127/85; TEMP 97.9; O2SAT 96
[2024-01-12] MEDS: oxyCODONE 5MG TAB PO PRN (22:07)
[2024-01-13 06:24] VITALS: BP 152/93; TEMP 97.9; O2SAT 96
[2024-01-13 06:36] LABS: BASO % 0.5 % (0.0-1.0); EOS # 0.2 10^3/uL (0.0-0.5); EOS % 4.7 % (0.0-3.0); HEMATOCRIT 37.1 % (42.0-52.0); LYMPH # 1.3 10^3/uL (1.5-5.0); LYMPH % 32.8 % (24.0-44.0); MEAN CORPUSCULAR HEMOGLOBIN 28.5 pg (27.0-33.0); MEAN CORPUSCULAR VOLUME 83.9 fl (80.0-96.0); MONO # 0.2 10^3/uL (0.0-0.8); MONO % 5.9 % (2.0-8.0); NEUTROPHILS # 2.3 10^3/uL (1.5-8.5); NEUTROPHILS % 55.9 % (36.0-66.0); PLATELET COUNT, AUTOMATED 127 10^3/uL (150-450); RED BLOOD COUNT 4.42 10^6/uL (4.30-6.10); WHITE BLOOD COUNT 4.1 10^3/uL (4.0-10.0)
[2024-01-13 06:37] LABS: HEMOGLOBIN 12.6 g/dl (13.5-17.5)
[2024-01-13 07:03] LABS: ALBUMIN 3.4 G/DL (3.2-5.2); ALKALINE PHOSPHATASE 75 U/L (46-116); ALT/SGPT 65 U/L (7.0-40); AST/SGOT 37 U/L (<34); BILIRUBIN,TOTAL 0.4 MG/DL (0.3-1.2); BLOOD UREA NITROGEN 7 MG/DL (9-23); CALCIUM LEVEL 8.3 MG/DL (8.5-10.1); CARBON DIOXIDE LEVEL 25 MMOL/L (20-31); CHLORIDE LEVEL 109 MMOL/L (98-107); CREATININE FOR GFR 0.85 MG/DL (0.70-1.30); GLOMERULAR FILTRATION RATE > 60.0 (>56); GLUCOSE, FASTING 237 MG/DL (60-100); POTASSIUM SERUM 4.1 MMOL/L (3.5-5.1); SODIUM LEVEL 140 MMOL/L (136-145)
[2024-01-13] MEDS ORDERED: METF500T13 PO (07:18)
[2024-01-13] MEDS ORDERED: FENO145T7 PO (07:18)
[2024-01-13] MEDS ORDERED: RISP-105 PO (07:18)
[2024-01-13] MEDS ORDERED: LOPERAMIDE 2 MG CAPLET PO PRN (07:20)
[2024-01-13] MEDS ORDERED: LOPE2CA PO (07:23)
[2024-01-13] MEDS: SERTRALINE HCL 50 MG TAB PO SCH (09:05)
[2024-01-13] MEDS: FENOFIBRATE 145MG TABLET (TRICOR) PO SCH (09:05)
[2024-01-13] MEDS: buPROPion **XL** TABLET 150MG (WELLBUTRIN XL) PO SCH (09:06)
[2024-01-13] MEDS: PANTOPRAZOLE 40MG TAB (PROTONIX) PO SCH (09:06)
[2024-01-13] MEDS: LOPERAMIDE 2 MG CAPLET PO ONE (09:06)
[2024-01-13] MEDS: risperiDONE 1 MG TAB PO ONE (09:06)
[2024-01-13] MEDS: DEXTROMETHORPHAN 60MG/10ML SUSP 90ML BTL(DELSYM) PO SCH (10:05)
== END 2024-01-13 10:25 | disposition home or self-care (01) ==
LOC: M ED 10:17 → M ED INP 10:18 → M MS5PR 16:00
PROVIDERS: ADMIT General Practice; ATTEND General Practice
DX: A08.11 Acute gastroenteropathy due to Norwalk agent (principal); K52.9 Noninfective gastroenteritis and colitis, unspecified; E11.65 Type 2 diabetes mellitus with hyperglycemia; F32.A Depression, unspecified; F41.1 Generalized anxiety disorder; E78.5 Hyperlipidemia, unspecified; K75.81 Nonalcoholic steatohepatitis (NASH); E03.9 Hypothyroidism, unspecified; E55.9 Vitamin D deficiency, unspecified; E29.1 Testicular hypofunction; R16.1 Splenomegaly, not elsewhere classified; M54.50 Low back pain, unspecified; D86.0 Sarcoidosis of lung; J45.909 Unspecified asthma, uncomplicated; Z79.84 Long term (current) use of oral hypoglycemic drugs; Z79.899 Other long term (current) drug therapy
CPT/HCPCS: 36415; 74177; 80047; 80048; 80053; 80061; 80178; 82010; 82550; 82553; 82803; 83036; 83605; 83690; 84145; 84439; 84443; 84481; 84484; 85025; 85610; 85652; 85730; 86140; 87324; 87507; 87635; 93005; 93041; 94640; 96361; 96365; 96375; 96376; 99285; C9113; G0378; J0131; J1170; J1885; J2405; J2550; Q9967

== ENCOUNTER 2024-02-14 18:58 | Emergency (ER) | payer MEDICARE ==
[~2024-02-14] VITALS: Ht 180.3 cm; Wt 93.9 kg
[~2024-02-14 18:58] MED LIST changes: -PROP60TA14 PO; -SUCR1SS PO
[2024-02-14] MEDS ORDERED: PROP60TA14 PO (19:10)
[2024-02-14] MEDS ORDERED: SUCR1SS PO (20:10)
[2024-02-14 20:11] LABS: BASO # 0.1 10^3/uL (0.0-0.2); BASO % 0.9 % (0.0-1.0); EOS # 0.1 10^3/uL (0.0-0.5); EOS % 1.8 % (0.0-3.0); HEMATOCRIT 43.3 % (42.0-52.0); HEMOGLOBIN 15.4 g/dl (13.5-17.5); LYMPH # 1.9 10^3/uL (1.5-5.0); LYMPH % 29.2 % (24.0-44.0); MEAN CORPUSCULAR HEMOGLOBIN 28.6 pg (27.0-33.0); MEAN CORPUSCULAR HGB CONC 35.6 g/dl (32.0-36.5); MEAN CORPUSCULAR VOLUME 80.3 fl (80.0-96.0); MONO # 0.5 10^3/uL (0.0-0.8); MONO % 6.8 % (2.0-8.0); NEUTROPHILS % 60.8 % (36.0-66.0); PLATELET COUNT, AUTOMATED 129 10^3/uL (150-450); RED BLOOD COUNT 5.39 10^6/uL (4.30-6.10); WHITE BLOOD COUNT 6.6 10^3/uL (4.0-10.0)
[2024-02-14] MEDS: ASPIRIN 81MG CHEW TABLET PO ONE (20:26)
[2024-02-14 20:27] LABS: CK-MB VALUE MASS 1.2 NG/ML (<3.6)
[2024-02-14 20:28] LABS: BLOOD UREA NITROGEN 11 MG/DL (9-23); CALCIUM LEVEL 9.4 MG/DL (8.5-10.1); CARBON DIOXIDE LEVEL 28 MMOL/L (20-31); CHLORIDE LEVEL 102 MMOL/L (98-107); CPK CREATINE PHOSPHOKINASE 57 U/L (46-171); CREATININE FOR GFR 0.77 MG/DL (0.70-1.30); GLOMERULAR FILTRATION RATE > 60.0 (>56); GLUCOSE, FASTING 238 MG/DL (60-100); POTASSIUM SERUM 4.2 MMOL/L (3.5-5.1); SODIUM LEVEL 139 MMOL/L (136-145)
[2024-02-14 21:24] LABS: CPK CREATINE PHOSPHOKINASE 47 U/L (46-171); MB/CK RELATIVE INDEX 2.12 (< OR =4)
[2024-02-14 21:30] VITALS: TEMP 98; O2SAT 98
[2024-02-14 21:59] VITALS: BP 165/100
== END 2024-02-14 22:00 | disposition home or self-care (01) ==
LOC: M ED 18:58
DX: R07.9 Chest pain, unspecified (principal); F45.0 Somatization disorder; E11.29 Type 2 diabetes mellitus with other diabetic kidney complication; E78.2 Mixed hyperlipidemia; E55.9 Vitamin D deficiency, unspecified; U09.9 Post COVID-19 condition, unspecified; E03.9 Hypothyroidism, unspecified; Z88.0 Allergy status to penicillin; Z88.8 Allergy status to other drugs, medicaments and biological substances; Z88.1 Allergy status to other antibiotic agents; Z79.84 Long term (current) use of oral hypoglycemic drugs; Z79.899 Other long term (current) drug therapy

== ENCOUNTER → 2024-02-14 | Outpatient (CLI) | payer MEDICARE ==
[~2024-02-14] MED LIST changes: +DIAZ10TA2; +FENO134C19; +FENO145T7 PO; +FLUTISP; +HYDR100C; +LITH300T2; +LOPE2CA PO; +METF500T13 PO; +OLAN1TAB20; +PROP60TA14 PO; +PROP80TA; +RISP-105 PO; +ROSU40TA4; +SERT50TA29 PO; +SUCR1SS PO; +SYMB16INH INH
[2024-02-14 11:01] LABS: ALBUMIN 4.3 G/DL (3.2-5.2); ALKALINE PHOSPHATASE 81 U/L (46-116); ALT/SGPT 57 U/L (7.0-40); AST/SGOT 33 U/L (<34); BILIRUBIN,TOTAL 0.4 MG/DL (0.3-1.2); BLOOD UREA NITROGEN 10 MG/DL (9-23); CALCIUM LEVEL 9.5 MG/DL (8.5-10.1); CARBON DIOXIDE LEVEL 25 MMOL/L (20-31); CHLORIDE LEVEL 98 MMOL/L (98-107); CHOLESTEROL LEVEL 261 MG/DL (<200); CREATININE FOR GFR 0.83 MG/DL (0.70-1.30); GLOMERULAR FILTRATION RATE > 60.0 (>56); GLUCOSE, FASTING 238 MG/DL (60-100); HDL CHOLESTEROL 36.2 MG/DL (>40); NON-HDL-C 224.8 MG/DL; POTASSIUM SERUM 4.2 MMOL/L (3.5-5.1); SODIUM LEVEL 134 MMOL/L (136-145); THYROID STIMULATING HORMONE 3.223 uIU/ML (0.55-4.78); TOTAL 25(OH) VITAMIN D 13.6 NG/ML (20.0-100.0); TOTAL PROTEIN 6.9 G/DL (5.7-8.2); TRIGLYCERIDES LEVEL 724 MG/DL (<150)
[2024-02-14 11:14] LABS: HEMOGLOBIN A1c 9.2 % (4.0-6.0)
[2024-02-14 11:34] LABS: MALB URINE SIEMENS < 3.0 MG/L; MAU/CREAT RATIO 4.8 MCG/MG (0.0-30.0)
== END ==
LOC: M PLALAB 06:50
PROVIDERS: ATTEND Family Medicine
DX: E11.29 Type 2 diabetes mellitus with other diabetic kidney complication (principal); E78.2 Mixed hyperlipidemia; E55.9 Vitamin D deficiency, unspecified; U09.9 Post COVID-19 condition, unspecified

== ENCOUNTER 2024-03-07 22:37 | Emergency (ER) | payer MEDICARE ==
[~2024-03-07] VITALS: Ht 180.3 cm; Wt 94.8 kg
[~2024-03-07 22:37] MED LIST changes: +BUPR-597 PO; -BUPR300T92 PO; +PROP60TA14 PO; -ROSU40TA4; -ROSU40TA4 PO; +ROSU40TA63; +ROSU40TA63 PO; +SUCR1SS PO
[2024-03-07 22:38] VITALS: BP 163/94; TEMP 97.2; O2SAT 98
[2024-03-08 01:51] LABS: BASO # 0.1 10^3/uL (0.0-0.2); BASO % 0.8 % (0.0-1.0); EOS # 0.1 10^3/uL (0.0-0.5); EOS % 1.3 % (0.0-3.0); HEMATOCRIT 41.6 % (42.0-52.0); HEMOGLOBIN 14.8 g/dl (13.5-17.5); LYMPH # 2.4 10^3/uL (1.5-5.0); LYMPH % 39.7 % (24.0-44.0); MEAN CORPUSCULAR HEMOGLOBIN 28.5 pg (27.0-33.0); MEAN CORPUSCULAR HGB CONC 35.6 g/dl (32.0-36.5); MONO # 0.4 10^3/uL (0.0-0.8); MONO % 5.7 % (2.0-8.0); NEUTROPHILS # 3.2 10^3/uL (1.5-8.5); NEUTROPHILS % 52.2 % (36.0-66.0); PLATELET COUNT, AUTOMATED 149 10^3/uL (150-450); WHITE BLOOD COUNT 6.1 10^3/uL (4.0-10.0)
[2024-03-08 02:04] LABS: INR 1.14; PARTIAL THROMBOPLASTIN TIME 28.7 SECONDS (24.8-34.2); PROTHROMBIN TIME 14.2 SECONDS (12.5-14.5)
[2024-03-08] MEDS: ONDANSETRON 4MG 2ML VIAL IV ONE (02:06)
[2024-03-08] MEDS: NS 1,000 ML IV ONE ×2 (02:06→03:02)
[2024-03-08 02:13] LABS: LIPASE 33 U/L (12-53)
[2024-03-08 02:15] LABS: ALBUMIN 4.2 G/DL (3.2-5.2); ALKALINE PHOSPHATASE 79 U/L (46-116); ALT/SGPT 46 U/L (7.0-40); AST/SGOT 28 U/L (<34); BILIRUBIN,DIRECT 0.1 MG/DL (<0.4); BILIRUBIN,TOTAL 0.5 MG/DL (0.3-1.2); BLOOD UREA NITROGEN 8 MG/DL (9-23); CALCIUM LEVEL 9.3 MG/DL (8.5-10.1); CARBON DIOXIDE LEVEL 27 MMOL/L (20-31); CHLORIDE LEVEL 103 MMOL/L (98-107); CREATININE FOR GFR 0.75 MG/DL (0.70-1.30); GLOMERULAR FILTRATION RATE > 60.0 (>56); GLUCOSE, FASTING 176 MG/DL (60-100); MAGNESIUM LEVEL 1.9 MG/DL (1.8-2.4); SODIUM LEVEL 138 MMOL/L (136-145)
[2024-03-08] MEDS ORDERED: ISOVUE-370 76% 100ML VIAL As Ordered ONE (02:33)
[2024-03-08] MEDS: KETOROLAC 30 MG/ML 1ML VIAL IV ONE (03:02)
[2024-03-08] MEDS: LIDOCAINE 2% 5ML JELLY UROJET TOP ONE (03:05)
[2024-03-08] MEDS ORDERED: FLOM0.4C39 PO (04:16)
[2024-03-08] MEDS ORDERED: FINA-48 PO (04:16)
== END 2024-03-08 05:45 | disposition home or self-care (01) ==
LOC: M ED 22:37
DX: N13.39 Other hydronephrosis (principal); N40.0 Benign prostatic hyperplasia without lower urinary tract symptoms; J98.11 Atelectasis; K76.0 Fatty (change of) liver, not elsewhere classified; F32.A Depression, unspecified; F41.9 Anxiety disorder, unspecified; Z88.0 Allergy status to penicillin; Z88.1 Allergy status to other antibiotic agents; Z88.8 Allergy status to other drugs, medicaments and biological substances; Z79.899 Other long term (current) drug therapy; Z79.810 Long term (current) use of selective estrogen receptor modulators (SERMs)
CPT/HCPCS: 51702; 74177; 80048; 80076; 83605; 83690; 83735; 85025; 85610; 85730; 86140; 87040; 93005; 96361; 96374; 96375; 99284; J1885; J2405; Q9967

== ENCOUNTER 2024-03-09 11:32 | Emergency (ER) | payer MEDICARE ==
[~2024-03-09] VITALS: Ht 180.3 cm; Wt 91.3 kg
[~2024-03-09 11:32] MED LIST changes: +FINA-48 PO; +FLOM0.4C39 PO
[2024-03-09 11:33] VITALS: BP 167/73; TEMP 98.2; O2SAT 97
[2024-03-09] MEDS: FINASTERIDE 5MG TAB PO STA (12:07)
[2024-03-09] MEDS: TAMSULOSIN 0.4 MG CAP PO ONE (12:10)
== END 2024-03-09 12:23 | disposition home or self-care (01) ==
LOC: M ED 11:32
DX: Z46.6 Encounter for fitting and adjustment of urinary device (principal); E11.9 Type 2 diabetes mellitus without complications; E78.5 Hyperlipidemia, unspecified; F41.9 Anxiety disorder, unspecified; F32.A Depression, unspecified; J45.909 Unspecified asthma, uncomplicated; N40.0 Benign prostatic hyperplasia without lower urinary tract symptoms; Z88.0 Allergy status to penicillin; Z88.1 Allergy status to other antibiotic agents; Z88.8 Allergy status to other drugs, medicaments and biological substances; Z79.4 Long term (current) use of insulin; Z79.899 Other long term (current) drug therapy

== ENCOUNTER 2024-03-12 04:08 | Emergency (ER) | payer MEDICARE ==
[~2024-03-12] VITALS: Ht 180.3 cm; Wt 92.3 kg
[2024-03-12] MEDS ORDERED: METO1TAB7 (04:19)
[2024-03-12 07:34] VITALS: TEMP 97.3
[2024-03-12 10:04] VITALS: BP 143/81; O2SAT 96
[2024-03-12] MEDS: FOSFOMYCIN TROMETHAMINE 3 GM POWDER PACKET (MONUROL) PO ONE (10:45)
== END 2024-03-12 10:51 | disposition home or self-care (01) ==
LOC: M ED 04:08
DX: R31.9 Hematuria, unspecified (principal); Z96.0 Presence of urogenital implants; E11.9 Type 2 diabetes mellitus without complications; E78.5 Hyperlipidemia, unspecified; R51.9 Headache, unspecified; J45.909 Unspecified asthma, uncomplicated; F41.9 Anxiety disorder, unspecified; Z79.4 Long term (current) use of insulin; Z79.83 Long term (current) use of bisphosphonates; Z79.899 Other long term (current) drug therapy

== ENCOUNTER → 2024-04-01 | Outpatient (CLI) | payer MEDICARE ==
[~2024-04-01] MED LIST changes: +METO1TAB7; +ONDA-282 PO; -ONDA4TAB6 PO
[2024-04-01 15:00] LABS: BASO % 0.5 % (0.0-1.0); EOS % 0.5 % (0.0-3.0); HEMATOCRIT 42.5 % (42.0-52.0); HEMOGLOBIN 14.8 g/dl (13.5-17.5); LYMPH # 1.9 10^3/uL (1.5-5.0); LYMPH % 25.2 % (24.0-44.0); MEAN CORPUSCULAR HEMOGLOBIN 28.4 pg (27.0-33.0); MEAN CORPUSCULAR HGB CONC 34.8 g/dl (32.0-36.5); MEAN CORPUSCULAR VOLUME 81.4 fl (80.0-96.0); MONO # 0.3 10^3/uL (0.0-0.8); NEUTROPHILS # 5.2 10^3/uL (1.5-8.5); NEUTROPHILS % 69.5 % (36.0-66.0); PLATELET COUNT, AUTOMATED 159 10^3/uL (150-450); RED BLOOD COUNT 5.22 10^6/uL (4.30-6.10); WHITE BLOOD COUNT 7.5 10^3/uL (4.0-10.0)
[2024-04-01 15:37] LABS: THYROID STIMULATING HORMONE 2.022 uIU/ML (0.55-4.78); THYROXINE (T4) 10.9 UG/DL (4.5-10.9)
[2024-04-01 15:45] LABS: ALBUMIN 4.4 G/DL (3.2-5.2); ALKALINE PHOSPHATASE 74 U/L (46-116); ALT/SGPT 71 U/L (7.0-40); AST/SGOT 58 U/L (<34); BILIRUBIN,TOTAL 0.4 MG/DL (0.3-1.2); BLOOD UREA NITROGEN 9 MG/DL (9-23); CALCIUM LEVEL 9.6 MG/DL (8.5-10.1); CARBON DIOXIDE LEVEL 25 MMOL/L (20-31); CHLORIDE LEVEL 104 MMOL/L (98-107); CREATININE FOR GFR 0.74 MG/DL (0.70-1.30); GLOMERULAR FILTRATION RATE > 60.0 (>56); GLUCOSE, FASTING 202 MG/DL (60-100); SODIUM LEVEL 139 MMOL/L (136-145); TOTAL PROTEIN 7.3 G/DL (5.7-8.2)
== END ==
LOC: M RAD 13:19
PROVIDERS: ATTEND Anesthesiology Pain Medicine
DX: Z01.818 Encounter for other preprocedural examination (principal); E07.9 Disorder of thyroid, unspecified

== ENCOUNTER 2024-04-02 16:30 | Emergency (ER) | payer MEDICARE ==
[~2024-04-02] VITALS: Ht 180.3 cm; Wt 92.4 kg
[2024-04-02 17:36] LABS: BASO % 0.5 % (0.0-1.0); EOS # 0.1 10^3/uL (0.0-0.5); EOS % 0.7 % (0.0-3.0); HEMATOCRIT 38.7 % (42.0-52.0); HEMOGLOBIN 13.7 g/dl (13.5-17.5); LYMPH % 24.2 % (24.0-44.0); MEAN CORPUSCULAR HEMOGLOBIN 28.4 pg (27.0-33.0); MEAN CORPUSCULAR HGB CONC 35.4 g/dl (32.0-36.5); MEAN CORPUSCULAR VOLUME 80.1 fl (80.0-96.0); MONO # 0.4 10^3/uL (0.0-0.8); NEUTROPHILS # 5.6 10^3/uL (1.5-8.5); NEUTROPHILS % 69.5 % (36.0-66.0); PLATELET COUNT, AUTOMATED 148 10^3/uL (150-450); RED BLOOD COUNT 4.83 10^6/uL (4.30-6.10); WHITE BLOOD COUNT 8.1 10^3/uL (4.0-10.0)
[2024-04-02 18:03] LABS: LIPASE 66 U/L (12-53)
[2024-04-02 18:05] LABS: ALBUMIN 4.1 G/DL (3.2-5.2); ALKALINE PHOSPHATASE 68 U/L (46-116); ALT/SGPT 61 U/L (7.0-40); AST/SGOT 40 U/L (<34); BILIRUBIN,DIRECT 0.1 MG/DL (<0.4); BILIRUBIN,TOTAL 0.4 MG/DL (0.3-1.2); BLOOD UREA NITROGEN 11 MG/DL (9-23); CALCIUM LEVEL 8.9 MG/DL (8.5-10.1); CARBON DIOXIDE LEVEL 26 MMOL/L (20-31); CHLORIDE LEVEL 102 MMOL/L (98-107); CREATININE FOR GFR 0.82 MG/DL (0.70-1.30); GLOMERULAR FILTRATION RATE > 60.0 (>56); GLUCOSE, FASTING 188 MG/DL (60-100); POTASSIUM SERUM 3.8 MMOL/L (3.5-5.1); SODIUM LEVEL 136 MMOL/L (136-145); TOTAL PROTEIN 6.7 G/DL (5.7-8.2)
[2024-04-02] MEDS: LIDOCAINE 2% 5ML JELLY UROJET TOP ONE (18:24)
[2024-04-02 18:48] VITALS: BP 164/102; TEMP 98.3; O2SAT 96
== END 2024-04-02 18:54 | disposition home or self-care (01) ==
LOC: M ED 16:30
DX: R33.9 Retention of urine, unspecified (principal); R19.7 Diarrhea, unspecified; M54.50 Low back pain, unspecified; E11.9 Type 2 diabetes mellitus without complications; J45.909 Unspecified asthma, uncomplicated; E78.5 Hyperlipidemia, unspecified; R51.9 Headache, unspecified; E03.9 Hypothyroidism, unspecified; Z88.0 Allergy status to penicillin; Z88.1 Allergy status to other antibiotic agents; Z88.8 Allergy status to other drugs, medicaments and biological substances; Z79.4 Long term (current) use of insulin; Z79.899 Other long term (current) drug therapy

== ENCOUNTER → 2024-04-02 | Outpatient (REF) | payer MEDICARE | LOC: M LAB REF 09:45 | PROVIDERS: ATTEND Physician Assistant | DX: R19.7 Diarrhea, unspecified (principal) ==

== ENCOUNTER 2024-04-09 23:39 | Emergency (ER) | payer MEDICARE ==
[~2024-04-09] VITALS: Ht 180.3 cm; Wt 88.2 kg
[2024-04-10 05:04] LABS: BASO % 0.5 % (0.0-1.0); EOS # 0.1 10^3/uL (0.0-0.5); EOS % 1.2 % (0.0-3.0); HEMATOCRIT 43.3 % (42.0-52.0); HEMOGLOBIN 15.1 g/dl (13.5-17.5); LYMPH # 2.3 10^3/uL (1.5-5.0); LYMPH % 28.1 % (24.0-44.0); MEAN CORPUSCULAR HEMOGLOBIN 28.4 pg (27.0-33.0); MEAN CORPUSCULAR HGB CONC 34.9 g/dl (32.0-36.5); MEAN CORPUSCULAR VOLUME 81.5 fl (80.0-96.0); MONO # 0.4 10^3/uL (0.0-0.8); NEUTROPHILS # 5.3 10^3/uL (1.5-8.5); PLATELET COUNT, AUTOMATED 158 10^3/uL (150-450); RED BLOOD COUNT 5.31 10^6/uL (4.30-6.10); WHITE BLOOD COUNT 8.2 10^3/uL (4.0-10.0)
[2024-04-10 05:33] LABS: BLOOD UREA NITROGEN 9 MG/DL (9-23); CALCIUM LEVEL 9.5 MG/DL (8.5-10.1); CARBON DIOXIDE LEVEL 27 MMOL/L (20-31); CHLORIDE LEVEL 104 MMOL/L (98-107); CREATININE FOR GFR 0.75 MG/DL (0.70-1.30); GLOMERULAR FILTRATION RATE > 60.0 (>56); GLUCOSE, FASTING 155 MG/DL (60-100); POTASSIUM SERUM 3.7 MMOL/L (3.5-5.1); SODIUM LEVEL 139 MMOL/L (136-145)
[2024-04-10 06:00] VITALS: BP 141/83
[2024-04-10 06:03] VITALS: TEMP 97.5
[2024-04-10] MEDS ORDERED: CIPR-249 PO (06:10)
[2024-04-10] MEDS: CIPROFLOXACIN 500MG TABLET PO ONE (06:14)
[2024-04-10 06:18] VITALS: O2SAT 98
== END 2024-04-10 06:20 | disposition home or self-care (01) ==
LOC: M ED 23:39
DX: N39.0 Urinary tract infection, site not specified (principal); E11.9 Type 2 diabetes mellitus without complications; I10 Essential (primary) hypertension; F32.A Depression, unspecified; F41.9 Anxiety disorder, unspecified; N40.1 Benign prostatic hyperplasia with lower urinary tract symptoms; Z88.0 Allergy status to penicillin; Z88.1 Allergy status to other antibiotic agents; Z88.8 Allergy status to other drugs, medicaments and biological substances; Z79.4 Long term (current) use of insulin; Z79.2 Long term (current) use of antibiotics; Z79.899 Other long term (current) drug therapy

== ENCOUNTER → 2024-04-17 | Outpatient (CLI) | payer MEDICARE ==
[~2024-04-17] MED LIST changes: +CIPR-249 PO
== END ==
LOC: M PLAIMG 08:02
PROVIDERS: ATTEND Anesthesiology Pain Medicine
DX: Z01.818 Encounter for other preprocedural examination (principal)

== ENCOUNTER 2024-04-18 02:41 | Emergency (ER) | payer MEDICARE ==
[~2024-04-18] VITALS: Ht 180.3 cm; Wt 90.4 kg
[2024-04-18 07:00] VITALS: BP 147/85; TEMP 98; O2SAT 99
== END 2024-04-18 07:06 | disposition home or self-care (01) ==
LOC: M ED 02:41
DX: T83.091A Other mechanical complication of indwelling urethral catheter, initial encounter (principal); E11.9 Type 2 diabetes mellitus without complications; N40.1 Benign prostatic hyperplasia with lower urinary tract symptoms; J45.909 Unspecified asthma, uncomplicated; E78.5 Hyperlipidemia, unspecified; Z90.89 Acquired absence of other organs; Z79.84 Long term (current) use of oral hypoglycemic drugs; Z88.0 Allergy status to penicillin; Z88.1 Allergy status to other antibiotic agents; Z88.8 Allergy status to other drugs, medicaments and biological substances; Z79.899 Other long term (current) drug therapy; Z79.2 Long term (current) use of antibiotics

== ENCOUNTER 2024-05-07 21:43 | Emergency (ER) | payer MEDICARE ==
[~2024-05-07] VITALS: Ht 180.3 cm; Wt 89.4 kg
[2024-05-07 21:44] VITALS: BP 155/93; TEMP 98.3; O2SAT 96
== END 2024-05-07 22:11 | disposition left against medical advice (07) ==
LOC: M ED 21:43
DX: Z53.21 Procedure and treatment not carried out due to patient leaving prior to being seen by health care provider (principal)

== ENCOUNTER → 2024-06-06 | Outpatient (CLI) | payer MEDICARE ==
[~2024-06-06] MED LIST changes: -ARIP1TAB43 PO; +ARIP20TA51 PO
== END ==
LOC: M PLALAB 11:01
PROVIDERS: ATTEND Family Medicine
DX: E11.29 Type 2 diabetes mellitus with other diabetic kidney complication (principal); E11.43 Type 2 diabetes mellitus with diabetic autonomic (poly)neuropathy; E11.65 Type 2 diabetes mellitus with hyperglycemia

== ENCOUNTER → 2024-06-06 | Outpatient (REF) | payer MEDICARE | LOC: M SFHCPLAZ 11:00 | PROVIDERS: ATTEND Family Medicine | DX: E11.29 Type 2 diabetes mellitus with other diabetic kidney complication (principal); E11.43 Type 2 diabetes mellitus with diabetic autonomic (poly)neuropathy; E11.65 Type 2 diabetes mellitus with hyperglycemia ==

== ENCOUNTER → 2024-07-24 | Outpatient (CLI) | payer MEDICARE ==
[~2024-07-24] MED LIST changes: -ROSU40TA63; -ROSU40TA63 PO; +ROSU40TA81; +ROSU40TA81 PO
[2024-07-24 13:51] LABS: HEMATOCRIT 35.8 % (42.0-52.0); HEMOGLOBIN 11.9 g/dl (13.5-17.5)
== END ==
LOC: M PLALAB 11:09
PROVIDERS: ATTEND Internal Medicine Endocrinology, Diabetes & Metabolism
DX: E29.1 Testicular hypofunction (principal)

== ENCOUNTER → 2024-08-26 | Outpatient (CLI) | payer MEDICARE ==
[2024-08-26 11:20] LABS: HEMATOCRIT 39.6 % (42.0-52.0); HEMOGLOBIN 13.2 g/dl (13.5-17.5); MEAN CORPUSCULAR HEMOGLOBIN 27.6 pg (27.0-33.0); MEAN CORPUSCULAR HGB CONC 33.3 g/dl (32.0-36.5); MEAN CORPUSCULAR VOLUME 82.8 fl (80.0-96.0); PLATELET COUNT, AUTOMATED 175 10^3/uL (150-450); RED BLOOD COUNT 4.78 10^6/uL (4.30-6.10); WHITE BLOOD COUNT 6.7 10^3/uL (4.0-10.0)
[2024-08-26 11:33] LABS: HEMOGLOBIN A1c 10.9 % (4.0-6.0)
[2024-08-26 11:50] LABS: ALBUMIN 3.9 G/DL (3.2-5.2); ALKALINE PHOSPHATASE 62 U/L (40-129); ALT/SGPT 26 U/L (7.0-40); AST/SGOT 14 U/L (<34); BILIRUBIN,TOTAL 0.3 MG/DL (0.3-1.2); BLOOD UREA NITROGEN 17 MG/DL (9-23); CALCIUM LEVEL 9.9 MG/DL (8.5-10.1); CARBON DIOXIDE LEVEL 26 MMOL/L (20-31); CHLORIDE LEVEL 102 MMOL/L (98-107); CREATININE FOR GFR 0.85 MG/DL (0.70-1.30); GLOMERULAR FILTRATION RATE > 60.0 (>56); GLUCOSE, FASTING 262 MG/DL (60-100); POTASSIUM SERUM 4.1 MMOL/L (3.5-5.1); SODIUM LEVEL 139 MMOL/L (136-145); TOTAL PROTEIN 7.1 G/DL (5.7-8.2)
== END ==
LOC: M PLALAB 07:54
PROVIDERS: ATTEND Family Medicine
DX: F41.0 Panic disorder [episodic paroxysmal anxiety] (principal); K75.81 Nonalcoholic steatohepatitis (NASH); E11.29 Type 2 diabetes mellitus with other diabetic kidney complication

== ENCOUNTER 2024-09-04 22:39 | Emergency (ER) | payer MEDICARE ==
[~2024-09-04] VITALS: Ht 180.3 cm; Wt 94.5 kg
[~2024-09-04 22:39] MED LIST changes: -CYCL5TAB PO; +CYCL5TAB4 PO
[2024-09-04 22:50] VITALS: TEMP 96.3
[2024-09-04 23:00] VITALS: BP 147/93; O2SAT 98
[2024-09-04 23:16] LABS: VENOUS BASE EXCESS -1.8 (-2.0-2.0); VENOUS HCO3 22.8 MMOL/L (23.0-27.0); VENOUS O2 SATURATION 98.9 % (60.0-80.0); VENOUS PARTIAL PRESSURE CO2 38.2 mmHg (38.0-50.0); VENOUS PARTIAL PRESSURE O2 139.8 mmHg (30.0-50.0); VENOUS PH 7.393 UNITS (7.330-7.430); VENOUS TOTAL CO2 23.9 MMOL/L (24.0-28.0)
[2024-09-04 23:22] LABS: BASO % 0.6 % (0.0-1.0); EOS # 0.1 10^3/uL (0.0-0.5); HEMATOCRIT 35.9 % (42.0-52.0); HEMOGLOBIN 12.2 g/dl (13.5-17.5); LYMPH # 2.1 10^3/uL (1.5-5.0); LYMPH % 41.4 % (24.0-44.0); MEAN CORPUSCULAR HEMOGLOBIN 27.9 pg (27.0-33.0); MEAN CORPUSCULAR VOLUME 82.2 fl (80.0-96.0); MONO # 0.3 10^3/uL (0.0-0.8); MONO % 5.9 % (2.0-8.0); NEUTROPHILS # 2.5 10^3/uL (1.5-8.5); NEUTROPHILS % 50.5 % (36.0-66.0); PLATELET COUNT, AUTOMATED 120 10^3/uL (150-450); RED BLOOD COUNT 4.37 10^6/uL (4.30-6.10)
[2024-09-04 23:24] LABS: APPEARANCE, URINE CLEAR (CLEAR); BACTERIA, URINE AUTO 1+ (NEGATIVE); BILIRUBIN, URINE AUTO NEGATIVE (NEGATIVE); BLOOD, URINE BLOOD NEGATIVE (NEGATIVE); COLOR, URINE STRAW (YELLOW); GLUCOSE, URINE (UA) AUTO 3+ mg/dL (NEGATIVE); KETONE, URINE AUTO NEGATIVE (NEGATIVE); LEUKOCYTE ESTERASE, URINE AUTO 1+ (NEGATIVE); NITRITE, URINE AUTO NEGATIVE (NEGATIVE); PROTEIN, URINE AUTO NEGATIVE (NEGATIVE); RBC, URINE AUTO 0 /HPF (0-3); SPECIFIC GRAVITY URINE AUTO 1.015 (1.002-1.035); SQUAMOUS EPITHELIAL CELL UR AU 0 /HPF (0-6); UROBILINOGEN, URINE AUTO 0.2 mg/dL (0.0-2.0); WBC, URINE AUTO 14 /HPF (0-3)
[2024-09-04] MEDS: ONDANSETRON 4MG ORAL DISINTEGRATING TAB PO ONE (23:31)
[2024-09-04 23:43] LABS: LIPASE 119 U/L (12-53); OSMOLALITY SERUM 303 MOSM/KG (275-295)
[2024-09-04 23:45] LABS: ACETONE/KETONE 0.26 MMOL/L (0.02-0.27)
[2024-09-04 23:56] LABS: HEMOGLOBIN A1c 11.5 % (4.0-6.0)
[2024-09-05 00:15] LABS: ALBUMIN 3.7 G/DL (3.2-5.2); ALKALINE PHOSPHATASE 63 U/L (40-129); ALT/SGPT 26 U/L (7.0-40); AST/SGOT 16 U/L (<34); BILIRUBIN,DIRECT < 0.1 MG/DL (<0.4); BILIRUBIN,TOTAL 0.2 MG/DL (0.3-1.2); BLOOD UREA NITROGEN 21 MG/DL (9-23); CALCIUM LEVEL 8.8 MG/DL (8.5-10.1); CARBON DIOXIDE LEVEL 23 MMOL/L (20-31); CHLORIDE LEVEL 96 MMOL/L (98-107); CREATININE FOR GFR 0.83 MG/DL (0.70-1.30); GLOMERULAR FILTRATION RATE > 60.0 (>56); GLUCOSE, FASTING 567 MG/DL (60-100); MAGNESIUM LEVEL 1.7 MG/DL (1.8-2.4); POTASSIUM SERUM 3.9 MMOL/L (3.5-5.1); SODIUM LEVEL 129 MMOL/L (136-145)
[2024-09-05] MEDS: MAGNESIUM OXIDE 400MG TAB (MAG-OX) PO ONE (01:16)
== END 2024-09-05 02:16 | disposition left against medical advice (07) ==
LOC: M ED 22:39
DX: E11.65 Type 2 diabetes mellitus with hyperglycemia (principal); F79 Unspecified intellectual disabilities; Z88.0 Allergy status to penicillin; Z88.1 Allergy status to other antibiotic agents; Z88.8 Allergy status to other drugs, medicaments and biological substances; Z79.4 Long term (current) use of insulin; Z79.899 Other long term (current) drug therapy; Z53.9 Procedure and treatment not carried out, unspecified reason

== ENCOUNTER → 2024-09-16 | Outpatient (CLI) | payer MEDICARE ==
[2024-09-16 11:04] LABS: HEMATOCRIT 43.3 % (42.0-52.0); HEMOGLOBIN 14.5 g/dl (13.5-17.5)
[2024-09-16 11:32] LABS: PSA SCREENING 0.44 NG/ML (< 4.00)
== END ==
LOC: M PLALAB 07:53
PROVIDERS: ATTEND Nurse Practitioner Family
DX: E29.1 Testicular hypofunction (principal); Z12.5 Encounter for screening for malignant neoplasm of prostate
CPT/HCPCS: 36415; 84403; 85014; 85018; G0103

== ENCOUNTER → 2024-11-04 | Outpatient (CLI) | payer MEDICARE ==
[2024-11-04 10:56] LABS: CREATININE, URINE 20.5 MG/DL; MAU/CREAT RATIO 82.9 MCG/MG (0.0-30.0)
[2024-11-04 11:29] LABS: HEMOGLOBIN A1c 11.2 % (4.0-6.0)
== END ==
LOC: M PLALAB 07:36
PROVIDERS: ATTEND Family Medicine
DX: E03.9 Hypothyroidism, unspecified (principal); Z79.899 Other long term (current) drug therapy

== ENCOUNTER → 2024-11-06 | Outpatient (REF) | payer MEDICARE | LOC: M LAB REF 18:34 | PROVIDERS: ATTEND Student in an Organized Health Care Education/Training Program | DX: R30.0 Dysuria (principal) ==

== ENCOUNTER → 2025-01-29 | Outpatient (CLI) | payer MEDICARE ==
[2025-01-29 14:25] LABS: HEMOGLOBIN A1c 8.7 % (4.0-6.0)
[2025-01-29 14:33] LABS: CREATININE, URINE 198.7 MG/DL
== END ==
LOC: M PLALAB 11:23
PROVIDERS: ATTEND Family Medicine
DX: E11.29 Type 2 diabetes mellitus with other diabetic kidney complication (principal)

== ENCOUNTER → 2025-01-29 | Outpatient (REF) | payer MEDICARE | LOC: M SFHCPLAZ 11:10 | PROVIDERS: ATTEND Family Medicine | DX: E11.29 Type 2 diabetes mellitus with other diabetic kidney complication (principal) ==

== ENCOUNTER → 2025-04-30 | Outpatient (CLI) | payer MEDICARE ==
[~2025-04-30] MED LIST changes: -BUPR-597 PO; +BUPR-766 PO; -FLOM0.4C39 PO; +TAMS-18 PO
== END ==
LOC: M PLALAB 07:01
PROVIDERS: ATTEND Nurse Practitioner Family
DX: E29.1 Testicular hypofunction (principal)

== ENCOUNTER → 2025-05-05 | Outpatient (REF) | payer MEDICARE | LOC: M SFHCPLAZ 12:47 | PROVIDERS: ATTEND Student in an Organized Health Care Education/Training Program | DX: M54.9 Dorsalgia, unspecified (principal) ==

== ENCOUNTER 2025-07-28 00:46 | Emergency (ER) | payer MEDICARE ==
[~2025-07-28] VITALS: Ht 180.3 cm; Wt 87.1 kg
[2025-07-28 06:00] LABS: BASO # 0.1 10^3/uL (0.0-0.2); BASO % 1.0 % (0.0-1.0); EOS # 0.2 10^3/uL (0.0-0.5); EOS % 2.5 % (0.0-3.0); LYMPH # 3.3 10^3/uL (1.5-5.0); LYMPH % 43.1 % (24.0-44.0); MONO # 0.5 10^3/uL (0.0-0.8); MONO % 5.8 % (2.0-8.0); NEUTROPHILS # 3.7 10^3/uL (1.5-8.5); NEUTROPHILS % 47.3 % (36.0-66.0); PLATELET COUNT, AUTOMATED 193 10^3/uL (150-450)
[2025-07-28 06:33] LABS: CALCIUM LEVEL 9.4 MG/DL (8.5-10.1); CARBON DIOXIDE LEVEL 26 MMOL/L (20-31); CHLORIDE LEVEL 100 MMOL/L (98-107); CREATININE FOR GFR 0.83 MG/DL (0.70-1.30); GLOMERULAR FILTRATION RATE > 90.0 (>56); POTASSIUM SERUM 3.9 MMOL/L (3.5-5.1); SODIUM LEVEL 139 MMOL/L (136-145)
[2025-07-28 07:01] VITALS: TEMP 96.7
[2025-07-28 07:35] LABS: ALT/SGPT 22 U/L (7.0-40); AST/SGOT 16 U/L (<34)
[2025-07-28 07:50] LABS: KETONE, URINE AUTO RFX NEGATIVE (NEGATIVE); LEUKOCYTE ESTERASE UR AUTO RFX NEGATIVE (NEGATIVE); NITRITE, URINE AUTO RFX NEGATIVE (NEGATIVE); RBC, URINE AUTO RFX 0 /HPF (0-3); SQUAM EPITHELIAL CELL UR AURFX 0 /HPF (0-6); WBC, URINE AUTO RFX 0 /HPF (0-3)
[2025-07-28 08:45] VITALS: BP 135/90; O2SAT 98
[2025-07-28] MEDS: MAGNESIUM CITRATE 300 ML BTL PO ONE (09:00)
== END 2025-07-28 09:03 | disposition home or self-care (01) ==
LOC: M ED 00:46
DX: K59.00 Constipation, unspecified (principal); Z90.49 Acquired absence of other specified parts of digestive tract; Z88.0 Allergy status to penicillin; Z88.1 Allergy status to other antibiotic agents; Z88.8 Allergy status to other drugs, medicaments and biological substances; Z79.899 Other long term (current) drug therapy

== ENCOUNTER → 2025-08-18 | Outpatient (CLI) | payer MEDICARE ==
[2025-08-18 15:26] LABS: PLATELET COUNT, AUTOMATED 221 10^3/uL (150-450)
[2025-08-18 15:48] LABS: ESTIMATED AVERAGE GLUCOSE 137.0 MG/DL (60-110)
[2025-08-18 15:49] LABS: ALT/SGPT 25 U/L (7.0-40); AST/SGOT 16 U/L (<34); C REACTIVE PROTEIN QUANTITATIV < 0.50 MG/DL (<1.0); CALCIUM LEVEL 9.6 MG/DL (8.5-10.1); CARBON DIOXIDE LEVEL 29 MMOL/L (20-31); CHLORIDE LEVEL 98 MMOL/L (98-107); CREATININE FOR GFR 0.94 MG/DL (0.70-1.30); GLOMERULAR FILTRATION RATE > 90.0 (>56); MAGNESIUM LEVEL 2.1 MG/DL (1.8-2.4); POTASSIUM SERUM 3.8 MMOL/L (3.5-5.1); SODIUM LEVEL 139 MMOL/L (136-145)
[2025-08-18 15:50] LABS: FREE T4 1.25 NG/DL (0.89-1.76)
== END ==
LOC: M PLALAB 14:07
DX: R19.4 Change in bowel habit (principal); R00.2 Palpitations; E11.29 Type 2 diabetes mellitus with other diabetic kidney complication

== ENCOUNTER 2025-09-27 06:52 | Emergency (ER) | payer MEDICARE ==
[~2025-09-27] VITALS: Ht 180.3 cm; Wt 88.4 kg
[2025-09-27] MEDS ORDERED: VENL75CA47 (07:14)
[2025-09-27] MEDS ORDERED: LUBI8CAP (07:14)
[2025-09-27] MEDS ORDERED: FLUO-290 (07:14)
[2025-09-27] MEDS ORDERED: ERGO500029 (07:14)
[2025-09-27] MEDS ORDERED: METF750T36 (07:14)
[2025-09-27] MEDS ORDERED: LEVO88TA3 (07:14)
[2025-09-27] MEDS ORDERED: FARX1TAB3 (07:14)
[2025-09-27] MEDS ORDERED: PROP60TA14 (07:14)
[2025-09-27] MEDS ORDERED: DOXY-441 (07:14)
[2025-09-27] MEDS: NS (Normal Saline) 0.9% 1,000 ML IV ONE (08:21)
[2025-09-27] MEDS ORDERED: ISOVUE-370 76% 100 ML VIAL As Ordered ONE (08:36)
[2025-09-27 08:43] LABS: BASO # 0.1 10^3/uL (0.0-0.2); BASO % 0.6 % (0.0-1.0); EOS # 0.1 10^3/uL (0.0-0.5); EOS % 1.3 % (0.0-3.0); LYMPH # 2.9 10^3/uL (1.5-5.0); LYMPH % 34.5 % (24.0-44.0); MONO # 0.5 10^3/uL (0.0-0.8); MONO % 5.7 % (2.0-8.0); NEUTROPHILS # 4.8 10^3/uL (1.5-8.5); NEUTROPHILS % 57.4 % (36.0-66.0); PLATELET COUNT, AUTOMATED 199 10^3/uL (150-450)
[2025-09-27 08:52] LABS: CK-MB VALUE MASS < 1.0 NG/ML (<3.6)
[2025-09-27 08:53] LABS: CPK CREATINE PHOSPHOKINASE 22 U/L (46-171)
[2025-09-27 08:54] LABS: ALT/SGPT 27 U/L (7.0-40); AST/SGOT 16 U/L (<34); CALCIUM LEVEL 9.2 MG/DL (8.5-10.1); CARBON DIOXIDE LEVEL 27 MMOL/L (20-31); CHLORIDE LEVEL 105 MMOL/L (98-107); CREATININE FOR GFR 0.92 MG/DL (0.70-1.30); GLOMERULAR FILTRATION RATE > 90.0 (>56); POTASSIUM SERUM 4.2 MMOL/L (3.5-5.1); SODIUM LEVEL 142 MMOL/L (136-145)
[2025-09-27 09:55] LABS: CK-MB VALUE MASS < 1.0 NG/ML (<3.6)
[2025-09-27 09:58] LABS: CPK CREATINE PHOSPHOKINASE 28 U/L (46-171)
[2025-09-27 10:21] VITALS: TEMP 97.5
[2025-09-27 10:39] VITALS: BP 131/89; O2SAT 97
== END 2025-09-27 10:46 | disposition home or self-care (01) ==
LOC: M ED 06:52
DX: U07.1 COVID-19 (principal); J01.90 Acute sinusitis, unspecified; E11.65 Type 2 diabetes mellitus with hyperglycemia; R79.9 Abnormal finding of blood chemistry, unspecified; K76.0 Fatty (change of) liver, not elsewhere classified; R91.8 Other nonspecific abnormal finding of lung field; E78.5 Hyperlipidemia, unspecified; E03.9 Hypothyroidism, unspecified; J45.909 Unspecified asthma, uncomplicated; I10 Essential (primary) hypertension; F32.A Depression, unspecified; F41.9 Anxiety disorder, unspecified; Z88.0 Allergy status to penicillin; Z88.8 Allergy status to other drugs, medicaments and biological substances; Z88.1 Allergy status to other antibiotic agents; Z79.899 Other long term (current) drug therapy; Z79.4 Long term (current) use of insulin
CPT/HCPCS: 71275; 80047; 80048; 80076; 82550; 82553; 83690; 84484; 85025; 87486; 87581; 87633; 87798; 87880; 93005; 93041; 96360; 99284; Q9967

== ENCOUNTER → 2025-09-28 | Outpatient (REF) | payer MEDICARE ==
[~2025-09-28] MED LIST changes: +DOXY-441; +ERGO500029; +FARX1TAB3; +FLUO-290; +LEVO88TA3; +LUBI8CAP; +METF750T36; +PROP60TA14; +VENL75CA47
[2025-09-28 15:52] LABS: APPEARANCE, URINE CLEAR (CLEAR); BACTERIA, URINE AUTO NEGATIVE (NEGATIVE); BILIRUBIN, URINE AUTO NEGATIVE (NEGATIVE); BLOOD, URINE BLOOD NEGATIVE (NEGATIVE); GLUCOSE, URINE (UA) AUTO 3+ mg/dL (NEGATIVE); KETONE, URINE AUTO NEGATIVE (NEGATIVE); LEUKOCYTE ESTERASE, URINE AUTO NEGATIVE (NEGATIVE); NITRITE, URINE AUTO NEGATIVE (NEGATIVE); PROTEIN, URINE AUTO NEGATIVE (NEGATIVE); RBC, URINE AUTO 0 /HPF (0-3); SPECIFIC GRAVITY URINE AUTO 1.009 (1.002-1.035); SQUAMOUS EPITHELIAL CELL UR AU 0 /HPF (0-6); UROBILINOGEN, URINE AUTO 0.2 mg/dL (0.0-2.0); WBC, URINE AUTO 0 /HPF (0-3)
== END ==
LOC: M SMT 15:08
PROVIDERS: ATTEND Nurse Practitioner Family
DX: R39.9 Unspecified symptoms and signs involving the genitourinary system (principal)

== ENCOUNTER 2025-10-13 02:06 | Emergency (ER) | payer MEDICARE ==
[~2025-10-13] VITALS: Ht 180.3 cm; Wt 96.8 kg
[2025-10-13 02:32] LABS: BASO # 0.1 10^3/uL (0.0-0.2); BASO % 0.4 % (0.0-1.0); EOS # 0.1 10^3/uL (0.0-0.5); EOS % 0.4 % (0.0-3.0); LYMPH # 3.3 10^3/uL (1.5-5.0); LYMPH % 19.7 % (24.0-44.0); MONO # 1.1 10^3/uL (0.0-0.8); MONO % 6.4 % (2.0-8.0); NEUTROPHILS # 12.2 10^3/uL (1.5-8.5); NEUTROPHILS % 71.9 % (36.0-66.0); PLATELET COUNT, AUTOMATED 198 10^3/uL (150-450)
[2025-10-13 03:03] LABS: ALT/SGPT 32 U/L (7.0-40); AST/SGOT 14 U/L (<34); CALCIUM LEVEL 9.3 MG/DL (8.5-10.1); CARBON DIOXIDE LEVEL 26 MMOL/L (20-31); CHLORIDE LEVEL 100 MMOL/L (98-107); CREATININE FOR GFR 0.86 MG/DL (0.70-1.30); GLOMERULAR FILTRATION RATE > 90.0 (>56); POTASSIUM SERUM 4.2 MMOL/L (3.5-5.1); SODIUM LEVEL 142 MMOL/L (136-145)
[2025-10-13] MEDS: ONDANSETRON 4MG/2ML VIAL IV ONE (05:06)
[2025-10-13] MEDS: KETOROLAC 30 MG/ML 1 ML VIAL IV ONE (05:06)
[2025-10-13] MEDS: NS (Normal Saline) 0.9% 1,000 ML IV ONE (05:07)
[2025-10-13 05:18] LABS: KETONE, URINE AUTO RFX TRACE mg/dL (NEGATIVE); LEUKOCYTE ESTERASE UR AUTO RFX NEGATIVE (NEGATIVE); MUCUS, URINE RFX SMALL (NEGATIVE); NITRITE, URINE AUTO RFX NEGATIVE (NEGATIVE); RBC, URINE AUTO RFX 0 /HPF (0-3); SQUAM EPITHELIAL CELL UR AURFX 0 /HPF (0-6); WBC, URINE AUTO RFX 1 /HPF (0-3)
[2025-10-13] MEDS ORDERED: ISOVUE-370 76% 100 ML VIAL As Ordered ONE (05:52)
[2025-10-13 06:04] VITALS: BP 129/77
[2025-10-13 06:20] VITALS: O2SAT 96
[2025-10-13] MEDS: MORPHINE 4 MG/ML 1 ML VIAL IV PRN (06:20)
[2025-10-13 06:55] VITALS: TEMP 99.8
[2025-10-20] MEDS ORDERED: MIRT-10 PO (09:55)
[2025-10-20] MEDS ORDERED: DIAZ10TA2 PO (09:55)
== END 2025-10-13 08:54 | disposition left against medical advice (07) ==
LOC: M ED 02:06
DX: R11.10 Vomiting, unspecified (principal); J45.909 Unspecified asthma, uncomplicated; Z88.0 Allergy status to penicillin; Z88.1 Allergy status to other antibiotic agents; Z88.8 Allergy status to other drugs, medicaments and biological substances; Z79.899 Other long term (current) drug therapy; Z79.4 Long term (current) use of insulin; Z53.9 Procedure and treatment not carried out, unspecified reason
CPT/HCPCS: 51701; 74177; 80048; 80076; 81001; 83690; 85025; 87486; 87581; 87633; 87798; 96374; 96375; 99284; J1885; J2405; Q9967